=== PATIENT | female | born 1960 | race African-American/Black ===

== ENCOUNTER 2017-02-12 16:44 | Emergency (ER) | payer OTHER ==
[2017-02-12 16:54] VITALS: BP 120/76; PULSE 93; TEMP 99.2; BMI 26.6
--- NOTE | 2017-02-12 17:39 | PDOC ---
History of Present Illness - General Chief Complaint: Cold Symptoms Stated Complaint: COLD SYMPTOMS Time Seen by Provider: 02/12/17 17:22 History Source: Patient Exam Limitations: No Limitations - History of Present Illness Initial Comments: 02/12/17 17:34 CC NASAL CONGESTION AND COUGH X 3 DAYS; FEVER ON FRIDAY Timing/Duration: reports: just prior to arrival Severity: reports: mild Possible Cause: Yes: no prior episodes Modifying Factors: worse with: albuterol inhaler, albuterol nebulizer Past History - Past Medical History Allergies/Adverse Reactions: Allergies Allergy/AdvReac Type Severity Reaction Status Date / Time aspirin Allergy Severe Swelling Verified 02/12/17 16:54 NSAIDS (Non-Steroidal Allergy Severe Swelling Verified 02/12/17 16:54 Anti-Inflamma Home Medications: Ambulatory Orders Carvedilol [Coreg] 12.5 mg PO DAILY 06/08/15 Nifedipine [Procardia] 90 mg PO DAILY 06/08/15 Omeprazole [Prilosec] 20 mg PO DAILY 06/08/15 GI Disorders: Yes (GERD) HTN: Yes Suicide Attempt (Hx): No - Surgical History Abdominal Surgery: Yes - Immunization History Immunization Up to Date: Yes - Psycho/Social/Smoking Cessation Hx Anxiety: No Suicidal Ideation: No Smoking Status: No Smoking History: Never smoked Have you smoked in the past 12 months: No Number of Cigarettes Smoked Daily: 0 Hx Alcohol Use: No Drug/Substance Use Hx: No Substance Use Type: None Review of Systems - Review of Systems Constitutional: Yes: Fever. No: Chills, Malaise HEENTM: Yes: Ear Pain, Ear Discharge. No: Nose Pain, Nose Congestion, Nose Bleeding Respiratory: Yes: Cough. No: Shortness of Breath, SOB with Exertion, Stridor, Wheezing Cardiac (ROS): No: Symptoms Reported ABD/GI: No: Symptoms Reported *Physical Exam - Vital Signs Last Vital Signs Temp Pulse Resp BP Pulse Ox 99.2 F 93 H 20 120/76 99 02/12/17 16:51 02/12/17 16:51 02/12/17 16:51 02/12/17 16:51 02/12/17 16:51 - Physical Exam General Appearance: Yes: Appropriately Dressed. No: Apparent Distress HEENT: negative: Other (POST NASAL DRIP; FLUID IN LEFT MIDDLE EAR) Neck: positive: Rigid. negative: Tender, Lymphadenopathy (R), Lymphadenopathy ( L) Respiratory/Chest: positive: Chest Tender. negative: Lungs Clear, Stridor, Wheezing Medical Decision Making - Medical Decision Making 02/12/17 17:36 LEFT EAR WITH EFFUSION; THROAT= NEGATIVE; NOSE= INJECTED *DC/Admit/Observation/Transfer Diagnosis at time of Disposition: Sinusitis Qualifiers: Sinusitis location: unspecified location Chronicity: acute Recurrence: recurrent Qualified Code(s): J01.91 - Acute recurrent sinusitis, unspecified - Discharge Dispostion Disposition: HOME Condition at time of disposition: Stable Admit: No - Patient Instructions Additional Instructions: LOTS OF FLUIDS; REST; RETURN FOR INCREASED SYMTOMS
== END 2017-02-12 17:44 | disposition home or self-care (01) ==
LOC: JERFT 16:44
DX: J01.90 Acute sinusitis, unspecified (principal)
CPT/HCPCS: 99281-25

== ENCOUNTER 2017-07-06 12:47 | Emergency (ER) | payer OTHER ==
[2017-07-06 13:04] VITALS: BP 153/94; PULSE 82; TEMP 98.1; BMI 26.9
--- NOTE | 2017-07-06 13:45 | PDOC ---
History of Present Illness - General Chief Complaint: Facial Droop Stated Complaint: COLD SYMPTOMS, SLURRED SPEECH Time Seen by Provider: 07/06/17 13:44 - History of Present Illness Initial Comments: 07/06/17 13:47 Ms. Buenrostro is a 57 yo female with pmh of hypertension, GERD, autoimmune hepatitis, dextrocardia insidious, kidney stones, hysterectomy, liver biopsy, and bells palsy who presents c/o a 2 day history of left sided facial droop with right sided facial pain and neck pain. She claims this started some time yesterday afternoon and that she is also not able to taste on the right side of her tongue. The patient denies chest pain, shortness of breath, headache and dizziness. Denies fever, chills, nausea, vomit, diarrhea and constipation. Denies dysuria, frequency, urgency and hematuria. Past History - Past Medical History Allergies/Adverse Reactions: Allergies Allergy/AdvReac Type Severity Reaction Status Date / Time aspirin Allergy Severe Swelling Verified 07/06/17 12:59 NSAIDS (Non-Steroidal Allergy Severe Swelling Verified 07/06/17 12:59 Anti-Inflamma Home Medications: Ambulatory Orders Carvedilol [Coreg] 12.5 mg PO DAILY 06/08/15 Nifedipine [Procardia] 90 mg PO DAILY 06/08/15 Omeprazole [Prilosec] 20 mg PO DAILY 06/08/15 Prednisone [Deltasone] 80 mg PO DAILY #28 tablet 07/06/17 Valacyclovir HCl [Valtrex -] 1,000 mg PO TID #21 tablet 07/06/17 Cardiac Disorders: No CVA: No COPD: No DVT: No GI Disorders: Yes (GERD) HTN: Yes - Surgical History Abdominal Surgery: Yes - Immunization History Immunization Up to Date: Yes - Suicide/Smoking/Psychosocial Hx Smoking Status: No Smoking History: Never smoked Have you smoked in the past 12 months: No Number of Cigarettes Smoked Daily: 0 Information on smoking cessation initiated: No Hx Alcohol Use: No Drug/Substance Use Hx: No Substance Use Type: None Review of Systems - Review of Systems Comments:: 07/06/17 14:15 GENERAL/CONSTITUTIONAL: No fever or chills. No weakness. HEAD, EYES, EARS, NOSE AND THROAT: +Drooping left mouth with difficulty tasting on right side. Right sided facial pain. No change in vision. CARDIOVASCULAR: No chest pain or shortness of breath RESPIRATORY: No cough, wheezing, or hemoptysis. GASTROINTESTINAL: No nausea, vomiting, diarrhea or constipation. GENITOURINARY: No dysuria, frequency, or change in urination. MUSCULOSKELETAL: No joint or muscle swelling or pain. No neck or back pain. SKIN: No rash NEUROLOGIC: No headache, vertigo, loss of consciousness, or change in strength/ sensation. ENDOCRINE: No increased thirst. No abnormal weight change HEMATOLOGIC/LYMPHATIC: No anemia, easy bleeding, or history of blood clots. ALLERGIC/IMMUNOLOGIC: No hives or skin allergy. *Physical Exam - Vital Signs Last Vital Signs Temp Pulse Resp BP Pulse Ox 98.1 F 82 16 153/94 95 07/06/17 13:01 07/06/17 13:01 07/06/17 13:01 07/06/17 13:01 07/06/17 13:01 - Physical Exam Comments: 07/06/17 14:16 GENERAL: Awake, alert, and fully oriented, in no acute distress HEAD: +Tongue deviates to left side. Right sided facial pain to palpation. Left sided facial droop. EYES: PERRLA, EOMI, sclera anicteric, conjunctiva clear ENT: Auricles normal inspection, hearing grossly normal, nares patent, oropharynx clear without exudates. Moist mucosa NECK: Normal ROM, supple, no lymphadenopathy, JVD, or masses LUNGS: No distress, speaks full sentences, clear to auscultation bilaterally HEART: Regular rate and rhythm, normal S1 and S2, no murmurs, rubs or gallops, peripheral pulses normal and equal bilaterally. ABDOMEN: Soft, nontender, normoactive bowel sounds. No guarding, no rebound. No masses EXTREMITIES: Normal inspection, Normal range of motion, no edema. No clubbing or cyanosis. NEUROLOGICAL: Cranial nerves II through XII grossly intact. Normal speech, normal gait, no focal sensorimotor deficits SKIN: Warm, Dry, normal turgor, no rashes or lesions noted. Medical Decision Making - Medical Decision Making 07/06/17 14:19 Patient has a history of torres's palsy and presents with symptoms highly suspicious for recurrence including lack of taste to tongue and facial droop / tongue deviation. Will educate regarding proper sleeping habits and need to keep eye lubricated during day and closed during sleep and discharge w/ Rx for acyclovir and steroids. *DC/Admit/Observation/Transfer Diagnosis at time of Disposition: Torres's palsy - Discharge Dispostion Disposition: HOME - Prescriptions Prescriptions: Prednisone [Deltasone] 80 mg PO DAILY #28 tablet Valacyclovir HCl [Valtrex -] 1,000 mg PO TID #21 tablet - Referrals - Patient Instructions Printed Discharge Instructions: DI for Torres's Palsy Additional Instructions: Please return if any increase or new symptoms. Keep eye closed for sleep and lubricated during day as discussed. - Post Discharge Activity
--- NOTE | 2017-07-06 14:11 | PDOC ---
Attending Attestation - HPI HPI: 07/06/17 14:11 The patient is a 57 year old female with a significant past medical history of hypertension who presents to the ED with complaints of facial drooping and lost of taste since yesterday. The patient reports a sudden onset of right sided facial drooping with lost of taste on the right side of her mouth. The patient has a history of [place] Palsy. Denies being in the sheikh/hiking. Denies fever or chills. Denies nausea, vomiting, or diarrhea. Denies chest pain or shortness of breath. Denies headache. ROS: A complete review of 10 out of 10 review of systems is taken and is negative apart from what is previously mentioned below and in the HPI. - Physicial Exam PE: 07/06/17 14:12 Vitals: Triage Vital signs reviewed General Appearance: no acute distress, well nourished well developed Head: Atruamatic Eyes: Pupils equal reactive round, extraocular movement intact Ears: TM's normal bilaterally Nose: Nares patent bilaterally; no nasal congestion Throat: Posterior oropharynx without erythema, mucous membranes moist Neck: Supple; No Nucal rigidity Chest Wall: Nontender Abdomen: Soft, nondistended, normal bowel sounds, nontender to palpation Extremities: Full range of motion to all extremities, no cyanosis, clubbing, or edema Skin: Warm and dry, no rashes or lesions, no rash, no petechiae Neuro: + + Right sided facial droop that involved the right forehead. AOX3; Strength intact to all extremities, Sensation intact to all extremities Psych: Normal mood, normal affect - Medical Decision Making 07/06/17 14:12 Documentation prepared by Mary Grace Gil, acting as medical manager for Hayes Butts MD <Mary Grace Gil - Last Filed: 07/06/17 18:11> - Resident Resident Name: Jeff Lucero - ED Attending Attestation I have performed the following: I have examined & evaluated the patient, The case was reviewed & discussed with the resident, I agree w/resident's findings & plan, Exceptions are as noted - Medical Decision Making History and examination consistent with Torres's palsy. Right-sided facial weakness involving the forehead. No other neurologic findings. No history of tic or [place] exposure Patient treated with prednisone and valacyclovir Patient provided with neurology follow-up Findings, need for follow-up and strict return instructions discussed with patient. <Hayes Butts - Last Filed: 07/06/17 19:03>
== END 2017-07-06 14:43 | disposition home or self-care (01) ==
LOC: JER 12:47
DX: G51.0 Bell's palsy (principal); I10 Essential (primary) hypertension; K21.9 Gastro-esophageal reflux disease without esophagitis
CPT/HCPCS: 99281-25

== ENCOUNTER 2018-01-12 10:58 | Emergency (ER) | payer OTHER ==
[2018-01-12 11:15] VITALS: TEMP 98.1; BMI 27.1
--- NOTE | 2018-01-12 11:51 | PDOC ---
History of Present Illness - General History Source: Patient Exam Limitations: No Limitations <Meagan Perez - Last Filed: 01/12/18 14:25> <Tawana Castillo - Last Filed: 01/16/18 09:03> - General Chief Complaint: Chest Pain Stated Complaint: CHEST PAIN Time Seen by Provider: 01/12/18 11:38 - History of Present Illness Initial Comments: CHIEF COMPLAINT: 57 y/o afebrile female with PMH HTN c/o right sided chest pain since yesterday. HISTORY OF PRESENT ILLNESS: The patient states the pain is intermittent and pinching. She took tylenol yesterday with little relief. She denies fever, chills, n/v/d, SOB, cough, hemoptysis, jaw pain, left arm pain, abd pain, back pain, hematuria, dysuria. She does admit 2 days ago she was lifting cases of water by herself. Vital signs on arrival are within normal limits. REVIEW OF SYSTEMS: GENERAL/CONSTITUTIONAL: Subjective fever/chills. No weakness. No weight change. HEAD, EYES, EARS, NOSE AND THROAT: No change in vision. No ear pain or discharge. No sore throat. CARDIOVASCULAR: +right sided chest pain. No shortness of breath. RESPIRATORY: No cough, wheezing, or hemoptysis. GASTROINTESTINAL: No abd pain, nausea, vomiting, diarrhea. GENITOURINARY: No dysuria, frequency, or change in urination. MUSCULOSKELETAL: No joint or muscle swelling or pain. No neck or back pain. SKIN: No rash or easy bruising. NEUROLOGIC: No headache, vertigo, loss of consciousness, or loss of sensation. PHYSICAL EXAM: GENERAL: The patient is awake, alert, and fully oriented, in no acute distress. She is well appearing, ambulatory, in NAD or obvious discomfort. HEAD: Normal with no signs of trauma. ENT: Pupils equal, round and reactive to light, extraocular movements intact, sclera anicteric, conjunctiva clear. Neck supple. LUNGS: Clear to auscultation bilaterally. Normal excursion. No respiratory distress or use of accessory muscles. CV: RRR, S1/S2, no MRG. Cap refill < 2 sec. CHEST WALL: Reproducible pain with palpation of right anterior chest wall. BREAST: No masses appreciated. ABDOMEN: Soft, non-distended, non-tender even to deep palpation, no hepatomegaly or splenomegaly, no masses. EXTREMITIES: Normal range of motion, no edema. NEUROLOGICAL: Normal speech, normal gait. CN II-XII grossly intact. SKIN: Warm, dry, normal turgor, no rashes or lesions noted. (Meagan Perez) Past History - Past Medical History Cardiac Disorders: No CVA: No COPD: No DVT: No GI Disorders: Yes (GERD) HTN: Yes Other medical history: ATTOIMMUNE HEPATITIS, "ALL MY ORGANS ARE ON THE OPPOSITE SIDE" - Surgical History Abdominal Surgery: Yes - Immunization History Immunization Up to Date: Yes - Suicide/Smoking/Psychosocial Hx Smoking Status: No Smoking History: Never smoked Have you smoked in the past 12 months: No Number of Cigarettes Smoked Daily: 0 Hx Alcohol Use: No Drug/Substance Use Hx: No Substance Use Type: None <Meagan Perez - Last Filed: 01/12/18 14:25> <Tawana Castillo - Last Filed: 01/16/18 09:03> - Past Medical History Allergies/Adverse Reactions: Allergies Allergy/AdvReac Type Severity Reaction Status Date / Time aspirin Allergy Severe Swelling Verified 01/12/18 11:11 NSAIDS (Non-Steroidal Allergy Severe Swelling Verified 01/12/18 11:11 Anti-Inflamma shrimp Allergy Intermediate Hives Verified 01/12/18 11:11 Home Medications: Ambulatory Orders Carvedilol [Coreg] 12.5 mg PO BID 06/08/15 Nifedipine [Procardia] 90 mg PO DAILY 06/08/15 Omeprazole [Prilosec] 20 mg PO DAILY 06/08/15 Acetaminophen [Tylenol Extra Strength] 500 mg PO TID PRN 01/12/18 - Vital Signs Last Vital Signs Temp Pulse Resp BP Pulse Ox 98.1 F 78 18 107/77 98 01/12/18 11:11 01/12/18 15:10 01/12/18 15:10 01/12/18 15:10 01/12/18 15:10 Heart Score/ECG Review <Meagan Perez - Last Filed: 01/12/18 14:25> <Tawana Castillo - Last Filed: 01/16/18 09:03> - ECG Intrepretation Comment:: Twelve-lead EKG was performed and reviewed by Dr. Muhammad. There is normal sinus rhythm with a normal rate. The axis is normal. The intervals are normal. There are flipped T-waves V1-V3. Impression: Normal twelve-lead EKG (Meagan Perez) ED Treatment Course - LABORATORY CBC & Chemistry Diagram: 01/12/18 12:48 01/12/18 12:48 <Meagan Perez - Last Filed: 01/12/18 14:25> - LABORATORY CBC & Chemistry Diagram: 01/12/18 12:48 01/12/18 12:48 <Tawana Castillo - Last Filed: 01/16/18 09:03> - ADDITIONAL ORDERS Additional order review: 01/12/18 12:48 RBC 4.96 MCV 77.2 L MCHC 33.2 RDW 14.6 D MPV 8.3 Neutrophils % 56.4 Lymphocytes % 32.7 Monocytes % 7.3 Eosinophils % 2.1 Basophils % 1.5 - Medications Given in the ED: ED Medications Discontinued Medications Generic Name Dose Route Start Last Admin Trade Name Leidy PRN Reason Stop Dose Admin Acetaminophen 1,000 mg 01/12/18 12:30 01/12/18 13:11 Ofirmev Injection - IVPB 01/12/18 12:31 Not Given ONCE ONE Medical Decision Making <Meagan Perez - Last Filed: 01/12/18 14:25> <Tawana Castillo - Last Filed: 01/16/18 09:03> - Medical Decision Making A/P: 57 y/o female with right anterior, reproducible chest wall pain. Given her age and h/o HTN will proceed as follows: 1. labs 2. EKG 3. Iv tylenol Labs and EKG unremarkable. Patient states she feels much better after IV tylenol Will discharge to home with instructions for musculoskeletal pain. Suggested tylenol for pain at home and f/u with both Dr. Newman and Dr. Arias. Patient instructed to return to the ER with any worsening or concerning symptoms. The patient verbalizes understanding of all instructions, has no further questions and is awaiting discharge. (Meagan Perez) *DC/Admit/Observation/Transfer <Meagan Perez - Last Filed: 01/12/18 14:25> <Tawana Castillo - Last Filed: 01/16/18 09:03> Diagnosis at time of Disposition: Musculoskeletal chest pain - Discharge Dispostion Disposition: HOME Condition at time of disposition: Improved - Referrals Referrals: Mono Newman MD [Staff Physician] - 1 week Janes Arias MD [Staff Physician] - 14 days - Patient Instructions Printed Discharge Instructions: DI for Atypical Chest Pain, DI for Musculoskeletal Pain Additional Instructions: Discharge Instructions: -Your EKG and labs were normal -Your symptoms are most likely musculoskeletal in nature -Please take 650mg of Tylenol every 4-6 hours if needed for pain -Follow up with Dr. Newman (primary care) within [address] Arias (cardiology ) if symptoms persist -Return to the ER with any worsening or concerning symptoms. - Post Discharge Activity Forms/Work/School Notes: Back to Work - Attestations Physician Attestion: I reviewed the case with the mid-level practitioner and agree with the mid- level practitioner's assessment, diagnosis and disposition. (Tawana Castillo)
[2018-01-12] MEDS ORDERED: ACETAMINOPHEN 1000 MG/100 ML VIAL (NON FORMULARY) IVPB ONE (12:30)
[2018-01-12] MEDS ORDERED: ACETAMINOPHEN INJECTION 100 ML IVPB ONE (12:52)
[2018-01-12 13:04] LABS: BASO % 1.5 % (0-2.0); EOS % 2.1 % (0-4.5); HEMATOCRIT 38.3 % (32.4-45.2); HEMOGLOBIN 12.7 GM/dL (10.7-15.3); LYMPH % 32.7 % (8-40); MCH 25.6 pg (25.7-33.7); MCHC 33.2 g/dl (32.0-36.0); MEAN CELL VOLUME 77.2 fl (80-96); MEAN PLT VOLUME 8.3 fl (7.5-11.1); MONO % 7.3 % (3.8-10.2); NEUT % 56.4 % (42.8-82.8); PLATELET COUNT 332 K/MM3 (134-434); RBC 4.96 M/mm3 (3.60-5.2); RDW 14.6 % (11.6-15.6); WHITE BLOOD COUNT 5.5 K/mm3 (4.0-10.0)
[2018-01-12 13:34] LABS: ALBUMIN 3.9 g/dl (3.4-5.0); ANION GAP 8 (8-16); BILIRUBIN,TOTAL 0.3 mg/dL (0.2-1.0); BLOOD UREA NITROGEN 10 mg/dL (7-18); CALCIUM 8.7 mg/dL (8.5-10.1); CHLORIDE 105 mmol/L (98-107); CO2 29 mmol/L (21-32); CREATININE 0.6 mg/dL (0.55-1.02); GLUCOSE,RANDOM 104 mg/dL (74-106); POTASSIUM 3.1 mmol/L (3.5-5.1); SGOT/AST 17 U/L (15-37); SGPT/ALT 20 U/L (12-78); SODIUM 142 mmol/L (136-145); TOT PROT 7.9 g/dl (6.4-8.2)
[2018-01-12 13:35] LABS: ALK PHOS 177 U/L (45-117)
[2018-01-12 15:11] VITALS: BP 107/77; PULSE 78
--- NOTE | 2018-01-13 13:25 | EKG ---
Test Reason : Blood Pressure : / mmHG Vent. Rate : 087 BPM Atrial Rate : 087 BPM P-R Int : 174 ms QRS Dur : 078 ms QT Int : 390 ms P-R-T Axes : 000 184 130 degrees QTc Int : 469 ms NORMAL SINUS RHYTHM ANTEROLATERAL INFARCT (CITED ON OR BEFORE 21-JAN-2014) ABNORMAL ECG WHEN COMPARED WITH ECG OF 08-JUN-2015 13:29, SINUS RHYTHM HAS REPLACED ECTOPIC ATRIAL RHYTHM T WAVE INVERSION MORE EVIDENT IN ANTERIOR LEADS Confirmed by MD JOHNNY, ARUN ([id number]) on 01/13/2018 1:25:25 PM Referred By: Confirmed By:ARUN TURNER MD
--- NOTE | 2018-01-14 11:44 | EKG ---
Test Reason : Blood Pressure : / mmHG Vent. Rate : 079 BPM Atrial Rate : 079 BPM P-R Int : 192 ms QRS Dur : 076 ms QT Int : 392 ms P-R-T Axes : 000 192 129 degrees QTc Int : 449 ms NORMAL SINUS RHYTHM RIGHT SUPERIOR AXIS DEVIATION SEPTAL INFARCT (CITED ON OR BEFORE 21-JAN-2014) T WAVE ABNORMALITY, CONSIDER ANTERIOR ISCHEMIA ABNORMAL ECG WHEN COMPARED WITH ECG OF 12-JAN-2018 12:24, QUESTIONABLE CHANGE IN INITIAL FORCES OF LATERAL LEADS T WAVE INVERSION LESS EVIDENT IN LATERAL LEADS Confirmed by KRUPA CARROLL, CAROLYN ([id number]) on 01/14/2018 11:44:23 AM Referred By: Confirmed By:CAROLYN GENTILE MD
== END 2018-01-12 15:10 | disposition home or self-care (01) ==
LOC: JER 10:58
PROC: 3E033NZ Introduction of Analgesics, Hypnotics, Sedatives into Peripheral Vein, Percutaneous Approach (ICD-10-PCS; principal; 2018-01-12)
DX: R07.89 Other chest pain (principal); I10 Essential (primary) hypertension; K75.4 Autoimmune hepatitis
CPT/HCPCS: 36415; 80053; 82550; 84484; 85025; 93005; 93010; 96374; 99283-25

== ENCOUNTER 2018-07-06 18:38 | Emergency (ER) | payer OTHER ==
--- NOTE | 2018-07-06 19:13 | PDOC ---
Rapid Medical Evaluation Time Seen by Provider: 07/06/18 19:11 Medical Evaluation: Allergies Allergy/AdvReac Type Severity Reaction Status Date / Time aspirin Allergy Severe Swelling Verified 01/12/18 11:11 NSAIDS (Non-Steroidal Allergy Severe Swelling Verified 01/12/18 11:11 Anti-Inflamma shrimp Allergy Intermediate Hives Verified 01/12/18 11:11 07/06/18 19:12 Pt c/o: upper abd pain x 1 day, no f/n/v/d, no GI hx Pt on brief exam: vss, no abd tenderness pt ordered for: cbc, comp, lipase pt to proceed to the ED Discharge Disposition - Diagnosis Abdominal pain - Referrals - Patient Instructions - Post Discharge Activity
[2018-07-06 19:14] VITALS: BP 123/79; PULSE 94; TEMP 98.3; BMI 26.9
== END 2018-07-06 21:43 | disposition left against medical advice (07) ==
LOC: JER 18:38
DX: R10.10 Upper abdominal pain, unspecified (principal)
CPT/HCPCS: 99281-25

== ENCOUNTER 2018-07-09 15:49 | Emergency (ER) | payer OTHER ==
[2018-07-09 16:01] VITALS: BMI 26.9
--- NOTE | 2018-07-09 16:07 | PDOC ---
History of Present Illness - General Chief Complaint: Pain Stated Complaint: Pain Time Seen by Provider: 07/09/18 16:07 - History of Present Illness Initial Comments: 58 year old female with PMH of hypertension, GERD, autoimmune hepatitis (found on liver biopsy), dextrocardia insidious, kidney stones, hysterectomy, and bells palsy presenting with acute on chronic left mid and epigastric pain for the past few years. Patient states that she has a sharp epigastric pain and this mid left abdominal pain a few times per month and it comes in waves then dissapates on its own without any obvious exacerbating or relieving factors. She has not been worked up for this before 07/09/18 16:47 Past History - Past Medical History Allergies/Adverse Reactions: Allergies Allergy/AdvReac Type Severity Reaction Status Date / Time aspirin Allergy Severe Swelling Verified 07/09/18 16:01 NSAIDS (Non-Steroidal Allergy Severe Swelling Verified 07/09/18 16:01 Anti-Inflamma shrimp Allergy Intermediate Hives Verified 07/09/18 16:01 Home Medications: Ambulatory Orders Carvedilol [Coreg] 12.5 mg PO BID 06/08/15 Omeprazole [Prilosec] 20 mg PO DAILY 06/08/15 Acetaminophen [Tylenol Extra Strength] 500 mg PO TID PRN 01/12/18 Nifedipine ER [Procardia Xl -] 90 mg PO DAILY 07/09/18 Cardiac Disorders: No CVA: No COPD: No DVT: No GI Disorders: Yes (GERD) HTN: Yes - Surgical History Abdominal Surgery: Yes - Immunization History Immunization Up to Date: Yes - Suicide/Smoking/Psychosocial Hx Smoking Status: No Smoking History: Never smoked Have you smoked in the past 12 months: No Number of Cigarettes Smoked Daily: 0 Hx Alcohol Use: No Drug/Substance Use Hx: No Substance Use Type: None Review of Systems - Review of Systems Constitutional: No: Chills, Diaphoresis, Fever, Loss of Appetite HEENTM: No: Eye Pain, Blurred Vision, Tearing Respiratory: No: Cough, Orthopnea, Shortness of Breath Cardiac (ROS): Yes: Chest Pain. No: Edema, Irregular Heart Rate, Chest Tightness, Other ABD/GI: No: Diarrhea, Nausea, Vomiting : No: Dysuria, Discharge, Frequency Musculoskeletal: No: Gout, Joint Pain, Joint Swelling Neurological: No: Numbness, Paresthesia, Tremors Psychiatric: No: Stressors, Sleep Pattern Change Hematologic/Lymphatic: No: Anemia, Blood Clots, Easy Bleeding *Physical Exam - Vital Signs Last Vital Signs Temp Pulse Resp BP Pulse Ox 98.9 F 93 H 18 130/79 100 07/09/18 15:59 07/09/18 15:59 07/09/18 15:59 07/09/18 15:59 07/09/18 15:59 - Physical Exam General Appearance: Yes: Nourished, Appropriately Dressed. No: Apparent Distress HEENT: positive: EOMI, JOÃO, Normal ENT Inspection, Normal Voice Neck: positive: Trachea midline, Normal Thyroid, Supple. negative: Tender, Rigid Respiratory/Chest: positive: Lungs Clear, Normal Breath Sounds. negative: Chest Tender, Respiratory Distress, Accessory Muscle Use Cardiovascular: positive: Regular Rhythm, Regular Rate Gastrointestinal/Abdominal: positive: Normal Bowel Sounds, Flat, Soft. negative : Tender Lymphatic: negative: Adenopathy, Tenderness Musculoskeletal: positive: Normal Inspection. negative: CVA Tenderness Extremity: positive: Normal Capillary Refill, Normal Inspection, Normal Range of Motion. negative: Tender Integumentary: positive: Normal Color, Dry, Warm Neurologic: positive: Fully Oriented, Alert, Normal Mood/Affect, Normal Response , Motor Strength 5/5 Moderate Sedation - Procedure Monitoring Vital Signs: Procedure Monitoring Vital Signs Temperature 98.9 F 07/09/18 15:59 Pulse Rate 93 H 07/09/18 15:59 Respiratory Rate 18 07/09/18 15:59 Blood Pressure 130/79 07/09/18 15:59 O2 Sat by Pulse Oximetry (%) 100 07/09/18 15:59 ED Treatment Course - LABORATORY CBC & Chemistry Diagram: 07/09/18 17:14 07/09/18 17:14 Medical Decision Making - Medical Decision Making 58 year old female presenting with left lower abdominal pain but non-tender on exam. Patient pending labs and EKG. Signed out to Dr. Demarco in stable condition. 07/09/18 19:10 *DC/Admit/Observation/Transfer Diagnosis at time of Disposition: Abdominal pain Qualifiers: Abdominal location: left upper quadrant Qualified Code(s): R10.12 - Left upper quadrant pain - Discharge Dispostion Disposition: HOME Condition at time of disposition: Stable Decision to Admit order: No - Referrals - Patient Instructions - Post Discharge Activity
[2018-07-09 17:31] LABS: BASO % 1.1 % (0-2.0); EOS % 3.4 % (0-4.5); HEMATOCRIT 36.5 % (32.4-45.2); HEMOGLOBIN 12.6 GM/dL (10.7-15.3); MCHC 34.5 g/dl (32.0-36.0); MEAN CELL VOLUME 78.1 fl (80-96); MEAN PLT VOLUME 8.1 fl (7.5-11.1); MONO % 5.5 % (3.8-10.2); PLATELET COUNT 349 K/MM3 (134-434); RBC 4.67 M/mm3 (3.60-5.2); RDW 14.9 % (11.6-15.6); WHITE BLOOD COUNT 7.1 K/mm3 (4.0-10.0)
--- NOTE | 2018-07-09 17:31 | PDOC ---
Attending Attestation - HPI HPI: 07/09/18 17:42 The patient is a 58 year old female with a significant PMHx of hypertension, GERD, autoimmune hepatitis (found on liver biopsy), dextrocardia insidious, kidney stones, hysterectomy, and srinivasan's palsy presenting with a few days of left sided chest pain which she describes as intermittent, sharp and lingering. She denies radiation of pain. She states the pain resolved upon ED arrival. - Physicial Exam PE: 07/09/18 17:43 GENERAL: Awake, alert, and fully oriented, in no acute distress HEAD: No signs of trauma EYES: PERRLA, EOMI, sclera anicteric, conjunctiva clear ENT: Auricles normal inspection, hearing grossly normal, nares patent, oropharynx clear without exudates. Moist mucosa NECK: Normal ROM, supple, no lymphadenopathy, JVD, or masses LUNGS: Breath sounds equal, clear to auscultation bilaterally. No wheezes, and no crackles HEART: Regular rate and rhythm, normal S1 and S2, no murmurs, rubs or gallops ABDOMEN: Soft, nontender, normoactive bowel sounds. No guarding, no rebound. No masses EXTREMITIES: Normal range of motion, no edema. No clubbing or cyanosis. No cords, erythema, or tenderness NEUROLOGICAL: Cranial nerves II through XII grossly intact. Normal speech, normal gait SKIN: Warm, Dry, normal turgor, no rashes or lesions noted. - Medical Decision Making 07/09/18 17:43 Documentation prepared by Mony Garcia, acting as medical csr for Adriana Arroyo MD <Mony Garcia - Last Filed: 07/09/18 17:42> - Medical Decision Making 07/09/18 18:27 Pt presents to the ED complaining of two days of atypical chest and epigastric pain. Deines fever, nausea and vomiting or shortness of breath. No abdominal tenderness. Differential includes muscular pain, GERD, less likely ACS. Will check labs and EKG, likely discharge home if negative. <Adriana Arroyo - Last Filed: 07/09/18 18:38>
[2018-07-09 17:37] LABS: URINE APPEARANCE CLEAR; URINE BILIRUBIN NEGATIVE (<2.0 mg/dL); URINE COLOR YELLOW; URINE GLUCOSE (UA) NEGATIVE (NEGATIVE); URINE KETONE NEGATIVE (NEGATIVE); URINE LEUK ESTERASE NEGATIVE (NEGATIVE); URINE NITRITE NEGATIVE (NEGATIVE); URINE PROTEIN NEGATIVE (NEGATIVE)
[2018-07-09 19:29] LABS: AMYLASE 69 U/L (25-115); LIPASE 151 U/L (73-393)
[2018-07-09 19:35] LABS: ALBUMIN 3.7 g/dl (3.4-5.0); ALK PHOS 176 U/L (45-117); ANION GAP 10 MMOL/L (8-16); BILIRUBIN,TOTAL 0.2 mg/dL (0.2-1); BLOOD UREA NITROGEN 13 mg/dL (7-18); CALCIUM 8.3 mg/dL (8.5-10.1); CHLORIDE 105 mmol/L (98-107); CO2 27 mmol/L (21-32); CREATININE 0.6 mg/dL (0.55-1.3); GLUCOSE,RANDOM 100 mg/dL (74-106); POTASSIUM 3.2 mmol/L (3.5-5.1); SGOT/AST 13 U/L (15-37); SGPT/ALT 21 U/L (13-61); SODIUM 141 mmol/L (136-145); TOT PROT 7.6 g/dl (6.4-8.2)
--- NOTE | 2018-07-09 19:58 | PDOC ---
*Physical Exam - Vital Signs Last Vital Signs Temp Pulse Resp BP Pulse Ox 98.9 F 93 H 18 130/79 98 07/09/18 15:59 07/09/18 15:59 07/09/18 15:59 07/09/18 15:59 07/09/18 16:46 - Physical Exam Comments: 07/09/18 19:59 GENERAL: Awake, alert, and fully oriented, in no acute distress HEAD: No signs of trauma, normocephalic, atraumatic EYES: PERRLA, EOMI, sclera anicteric, conjunctiva clear ENT: Hearing grossly normal, nares patent, oropharynx clear without exudates. Moist mucosa NECK: Normal ROM, supple, no lymphadenopathy, JVD, or masses LUNGS: No distress, speaks full sentences, clear to auscultation bilaterally HEART: Regular rate and rhythm, normal S1 and S2, no murmurs, rubs or gallops, peripheral pulses normal and equal bilaterally. ABDOMEN: Soft, nontender, normoactive bowel sounds. No guarding, no rebound. No masses EXTREMITIES : Normal inspection, Normal range of motion, no edema. No clubbing or cyanosis. SKIN: Warm, Dry, normal turgor, no rashes or lesions noted ED Treatment Course - LABORATORY CBC & Chemistry Diagram: 07/09/18 17:14 07/09/18 18:31 - ADDITIONAL ORDERS Additional order review: Laboratory Results 07/09/18 07/09/18 07/09/18 18:31 18:31 17:28 Sodium 141 Potassium 3.2 L Chloride 105 Carbon Dioxide 27 Anion Gap 10 BUN 13 Creatinine 0.6 Creat Clearance w eGFR > 60 Random Glucose 100 Calcium 8.3 L Total Bilirubin 0.2 AST 13 L ALT 21 Alkaline Phosphatase 176 H Creatine Kinase Troponin I < 0.02 Total Protein 7.6 Albumin 3.7 Total Amylase 69 Lipase 151 Urine Color Yellow Urine Appearance Clear Urine pH 6.0 D Ur Specific Queen 1.018 Urine Protein Negative Urine Glucose (UA) Negative Urine Ketones Negative Urine Blood Negative Urine Nitrite Negative Urine Bilirubin Negative Urine Urobilinogen 2.0 H Ur Leukocyte Esterase Negative 07/09/18 17:14 Sodium Cancelled Potassium Cancelled Chloride Cancelled Carbon Dioxide Cancelled Anion Gap Cancelled BUN Cancelled Creatinine Cancelled Creat Clearance w eGFR Cancelled Random Glucose Cancelled Calcium Cancelled Total Bilirubin Cancelled AST Cancelled ALT Cancelled Alkaline Phosphatase Cancelled Creatine Kinase Cancelled Troponin I Cancelled Total Protein Cancelled Albumin Cancelled Total Amylase Cancelled Lipase Cancelled Urine Color Urine Appearance Urine pH Ur Specific Queen Urine Protein Urine Glucose (UA) Urine Ketones Urine Blood Urine Nitrite Urine Bilirubin Urine Urobilinogen Ur Leukocyte Esterase 07/09/18 17:14 RBC 4.67 MCV 78.1 L MCHC 34.5 RDW 14.9 MPV 8.1 Neutrophils % 61.0 Lymphocytes % 29.0 Monocytes % 5.5 Eosinophils % 3.4 Basophils % 1.1 Medical Decision Making - Medical Decision Making 07/09/18 19:50 58 yo F with h/o HTN, GERD, Autoimmune hepatitis, dextrocardia, hysterectomy, who p/w acute on chronic epigastria pain x 3 years. Patient endorsed by Dr. Metcalf. VSS, AF, physical exam unremarkable. ED Course notable for lab eval, EKG. Patient ACS/NH r/o. Pain likely 2/2 to gastritis vs. esophagitis. Will consider pancreatitis, biliary dz., enteritis. ED Course: 07/09/18 19:59 CBC,CMP: Unremarkable Trop: Neg Lipase: Neg Pt. pain improved. Stable for d/c with return precautions. Advised to f/u GI. *DC/Admit/Observation/Transfer Diagnosis at time of Disposition: Abdominal pain Qualifiers: Abdominal location: left upper quadrant Qualified Code(s): R10.12 - Left upper quadrant pain - Discharge Dispostion Disposition: HOME Condition at time of disposition: Stable - Referrals Referrals: Rufus Espinal MD [Staff Physician] - - Patient Instructions Printed Discharge Instructions: DI for Epigastric Pain Additional Instructions: Please return to the emergency department with any new or worsening symptoms or concerns. Please follow up with your primary care physician within 72 hours. Please follow up with gastroenterology within one week. - Post Discharge Activity - Attestations Physician Attestion: 07/09/18 19:59 I attest to the information provided in this note.
[2018-07-09 21:19] VITALS: BP 127/81; PULSE 83; TEMP 98.1
--- NOTE | 2018-07-10 10:17 | EKG ---
Test Reason : Blood Pressure : / mmHG Vent. Rate : 074 BPM Atrial Rate : 074 BPM P-R Int : 186 ms QRS Dur : 082 ms QT Int : 392 ms P-R-T Axes : 000 194 140 degrees QTc Int : 435 ms NORMAL SINUS RHYTHM ANTEROLATERAL INFARCT (CITED ON OR BEFORE 21-JAN-2014) ABNORMAL ECG Confirmed by MARY ANN WRIGHT MD ([id number]) on 07/10/2018 10:16:57 AM Referred By: Confirmed By:MARY ANN WRIGHT MD
== END 2018-07-09 21:40 | disposition home or self-care (01) ==
LOC: JER 15:49
DX: R10.12 Left upper quadrant pain (principal); I10 Essential (primary) hypertension; K21.9 Gastro-esophageal reflux disease without esophagitis
CPT/HCPCS: 36415; 80053; 81003; 82150; 82550; 83690; 84484; 85025; 93005; 93010; 99285-25

== ENCOUNTER 2018-12-20 20:25 | Emergency (ER) | payer OTHER ==
[2018-12-20 20:33] VITALS: TEMP 98; BMI 29.2
[2018-12-20] MEDS ORDERED: SODIUM CHLORIDE 1,000 ML IV STA (20:47)
--- NOTE | 2018-12-20 20:57 | PDOC ---
History of Present Illness - General Chief Complaint: Palpitations Stated Complaint: HEART PALPITATION Time Seen by Provider: 12/20/18 20:33 History Source: Patient Exam Limitations: No Limitations - History of Present Illness Initial Comments: 12/20/18 20:51 Patient is a 58F with history significant for dextrocardia, situs inversus and HTN here today complaining of palpitations that started 45 minutes prior to arrival. Denies associated chest pain and shortness of breath. Patient states that she's had two prior caths in the past, both normal. Patient denies leg swelling, recent travel, history of blood clots in self and family. Denies cough , fever, nausea, vomiting, diarrhea. States that she had this happen once before two years ago, but states that nothing happened then. Past History - Past Medical History Allergies/Adverse Reactions: Allergies Allergy/AdvReac Type Severity Reaction Status Date / Time aspirin Allergy Severe Swelling Verified 07/09/18 16:01 NSAIDS (Non-Steroidal Allergy Severe Swelling Verified 07/09/18 16:01 Anti-Inflamma shrimp Allergy Intermediate Hives Verified 07/09/18 16:01 Home Medications: Ambulatory Orders Carvedilol [Coreg] 12.5 mg PO BID 06/08/15 Omeprazole [Prilosec] 20 mg PO DAILY 06/08/15 Nifedipine ER [Procardia Xl -] 90 mg PO DAILY 07/09/18 Cardiac Disorders: No CVA: No COPD: No DVT: No GI Disorders: Yes (GERD) HTN: Yes - Surgical History Abdominal Surgery: Yes - Immunization History Immunization Up to Date: Yes - Suicide/Smoking/Psychosocial Hx Smoking Status: No Smoking History: Never smoked Have you smoked in the past 12 months: No Number of Cigarettes Smoked Daily: 0 Hx Alcohol Use: No Drug/Substance Use Hx: No Substance Use Type: None Review of Systems - Review of Systems Able to Perform ROS?: Yes Comments:: 12/20/18 20:56 GENERAL/CONSTITUTIONAL: No fever or chills. No weakness. HEAD, EYES, EARS, NOSE AND THROAT: No change in vision. No sore throat. CARDIOVASCULAR: No chest pain or shortness of breath +palpitations RESPIRATORY: No cough, wheezing, or hemoptysis. GASTROINTESTINAL: No nausea, vomiting, diarrhea or constipation. GENITOURINARY: No dysuria, frequency, or change in urination. MUSCULOSKELETAL: No joint or muscle swelling or pain. No neck or back pain. SKIN: No rash NEUROLOGIC: No headache, vertigo, loss of consciousness, or change in strength/ sensation. HEMATOLOGIC/LYMPHATIC: No anemia, easy bleeding, or history of blood clots. ALLERGIC/IMMUNOLOGIC: No hives or skin allergy. *Physical Exam - Vital Signs Last Vital Signs Temp Pulse Resp BP Pulse Ox 98 F 110 H 20 131/92 97 12/20/18 20:28 12/20/18 20:49 12/20/18 20:49 12/20/18 20:49 12/20/18 20:49 - Physical Exam Comments: 12/20/18 20:57 GENERAL: Awake, alert, and fully oriented, in no acute distress HEAD: No signs of trauma, normocephalic, atraumatic EYES: PERRLA, EOMI, sclera anicteric, conjunctiva clear ENT: Auricles normal inspection, hearing grossly normal, nares patent, oropharynx clear without exudates. Dry mucosa NECK: Normal ROM, supple, no lymphadenopathy, JVD, or masses LUNGS: No distress, speaks full sentences, clear to auscultation bilaterally HEART: Regular rate and rhythm, normal S1 and S2, no murmurs, rubs or gallops, peripheral pulses normal and equal bilaterally. ABDOMEN: Soft, nontender, normoactive bowel sounds. No guarding, no rebound. No masses EXTREMITIES: Normal inspection, Normal range of motion, no edema. No clubbing or cyanosis. NEUROLOGICAL: Cranial nerves II through XII grossly intact. Normal speech, no focal sensorimotor deficits SKIN: Warm, Dry, normal turgor, no rashes or lesions noted. ED Treatment Course - LABORATORY CBC & Chemistry Diagram: 12/20/18 21:10 12/20/18 21:10 - RADIOLOGY Radiology Studies Ordered: Category Date Time Status CHEST X-RAY PORTABLE* [RAD] Stat Radiology 12/20/18 20:49 Ordered Medical Decision Making - Medical Decision Making 12/20/18 20:58 Patient is 58F with history of dextrocardia, htn, situs inversus here today with palptiations. Vitals notable for tachycardia. DDx includes, but is not limited to: PE (Well's 1.5, low risk), dehydration, arrhythmia. Will treat with fluids. Will work up with ekg, cbc, cmp, pt/inr, trop, cxr, d-dimer. EKG shows sinus tachycardia with evidence of dextrocardia (upright avr with down avl), rate 114. Normal axis, normal intervals. No st elevations/ depressions. No significant t wave abnormalities. 12/20/18 21:01 CXR shows no acute cardiopulmonary process, dextrocardia. 12/20/18 21:52 CBC normal. CMP normal. D-dimer rules out PE. TSH added, pending. Patient HR is 102 after 200cc of fluid, will reassess and likely discharge home. 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 Please return if you have any new, worsening or concerning symptoms, especially increasing pain, fever, and palpitations. Please drink plenty of fluids, as I believe that you were dehydrated today. - Post Discharge Activity
[2018-12-20 21:24] LABS: BASO % 0.8 % (0-2.0); EOS % 3.1 % (0-4.5); HEMATOCRIT 38.6 % (32.4-45.2); HEMOGLOBIN 12.7 GM/dL (10.7-15.3); LYMPH % 36.2 % (8-40); MCH 25.8 pg (25.7-33.7); MCHC 32.8 g/dl (32.0-36.0); MEAN CELL VOLUME 78.6 fl (80-96); MEAN PLT VOLUME 8.1 fl (7.5-11.1); MONO % 6.7 % (3.8-10.2); NEUT % 53.2 % (42.8-82.8); PLATELET COUNT 355 K/MM3 (134-434); RBC 4.91 M/mm3 (3.60-5.2); RDW 14.7 % (11.6-15.6); WHITE BLOOD COUNT 7.4 K/mm3 (4.0-10.0)
[2018-12-20 21:34] LABS: INR 0.97 (0.83-1.09); PROTHROMBIN TIME (PATIENT) 11.4 SEC (9.7-13.0)
[2018-12-20 21:46] LABS: ALBUMIN 3.9 g/dl (3.4-5.0); ALK PHOS 196 U/L (45-117); ANION GAP 8 MMOL/L (8-16); BILIRUBIN,TOTAL 0.2 mg/dL (0.2-1); BLOOD UREA NITROGEN 14 mg/dL (7-18); CALCIUM 8.5 mg/dL (8.5-10.1); CHLORIDE 105 mmol/L (98-107); CO2 28 mmol/L (21-32); CREATININE 0.7 mg/dL (0.55-1.3); GLUCOSE,RANDOM 144 mg/dL (74-106); MAGNESIUM 1.9 mg/dL (1.8-2.4); SGOT/AST 15 U/L (15-37); SGPT/ALT 21 U/L (13-61); SODIUM 141 mmol/L (136-145); TOT PROT 8.2 g/dl (6.4-8.2)
--- NOTE | 2018-12-20 23:24 | PDOC ---
Documentation entered by Mala Newby SCRIBE, acting as scribe for Tabitha Aviles MD. Tabitha Aviles MD: This documentation has been prepared by the rojelioibe, Mala Newby SCRIBE, under my direction and personally reviewed by me in its entirety. I confirm that the documentation accurately reflects all work, treatment, procedures, and medical decision making performed by me. Attending Attestation - Resident Resident Name: Stefan Lomeli - ED Attending Attestation I have performed the following: I have examined & evaluated the patient, The case was reviewed & discussed with the resident, I agree w/resident's findings & plan, Exceptions are as noted - HPI HPI: 12/20/18 21:00 The patient is a 58 year old female with a significant past medical history of Rule Palsy, dextrocardia, hysterectomy, hypertension, GERD, kidney stones and autoimmune hepatitis who presents to the emergency department with a sudden onset of heart palpitations 45 min prior to arrival. The patient states that she experienced a similar episode about 2 years ago . she state that she is complaint with all of her regular medications. She denies any chest pain, shortness of breath, recent travel, leg swelling or pain. She denies any fever, chills, nausea, vomiting, diarrhea constipation or urinary symptoms. The patient denies any other complaints. 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
[2018-12-20 23:29] VITALS: BP 125/90; PULSE 93
--- NOTE | 2018-12-21 09:53 | EKG ---
Test Reason : Blood Pressure : / mmHG Vent. Rate : 114 BPM Atrial Rate : 114 BPM P-R Int : 182 ms QRS Dur : 080 ms QT Int : 314 ms P-R-T Axes : 115 175 130 degrees QTc Int : 432 ms SUSPECT ARM LEAD REVERSAL, INTERPRETATION ASSUMES NO REVERSAL SINUS TACHYCARDIA POSSIBLE ANTEROLATERAL INFARCT (CITED ON OR BEFORE 21-JAN-2014) ABNORMAL ECG WHEN COMPARED WITH ECG OF 09-JUL-2018 19:15, VENT. RATE HAS INCREASED BY 40 BPM Confirmed by SHERRY ALEJANDRE MD ([id number]) on 12/21/2018 9:53:30 AM Referred By: Confirmed By:SHERRY ALEJANDRE MD
== END 2018-12-20 23:34 | disposition home or self-care (01) ==
LOC: JER 20:25
PROC: 3E0337Z Introduction of Electrolytic and Water Balance Substance into Peripheral Vein, Percutaneous Approach (ICD-10-PCS; principal; 2018-12-20)
DX: R00.2 Palpitations (principal); Q24.0 Dextrocardia; I10 Essential (primary) hypertension
CPT/HCPCS: 36415; 71045-TC-FY; 80053; 82550; 83735; 84443; 84484; 85025; 85379; 85610; 93005; 93010; 99284-25; J7030

== ENCOUNTER 2018-12-28 13:02 | Emergency (ER) | payer OTHER ==
[2018-12-28 13:17] VITALS: BP 127/81; PULSE 89; TEMP 98.4; BMI 26.6
--- NOTE | 2018-12-28 15:13 | PDOC ---
History of Present Illness - General Chief Complaint: Pain, Acute Stated Complaint: ABD PAIN Time Seen by Provider: 12/28/18 14:55 History Source: Patient Exam Limitations: No Limitations - History of Present Illness Initial Comments: 12/28/18 17:46 58 yo F presents with one day history of abdominal pain. She describes twisting intermittent 6/10 periumbilical abdominal pain that generalizes to bilateral lower quadrants. Denies alleviating or aggravating factors. She denies fever, chills, nausea, vomiting or diarrhea. Last BM was today and was normal with no blood. Denies CP,BELTRAN, SOB, palpiations, or sick contacts. She has history of hysterectomy and bilateral salpingoopherectomy. Denies urinary symptoms of frequency or dysuria. Timing/Duration: 24 hours Severity: moderate Past History - Travel Traveled outside of the country in the last 30 days: No Close contact w/someone who was outside of country & ill: No - Past Medical History Allergies/Adverse Reactions: Allergies Allergy/AdvReac Type Severity Reaction Status Date / Time aspirin Allergy Severe Swelling Verified 12/28/18 13:13 NSAIDS (Non-Steroidal Allergy Severe Swelling Verified 12/28/18 13:13 Anti-Inflamma shrimp Allergy Intermediate Hives Verified 12/28/18 13:13 Home Medications: Ambulatory Orders Carvedilol [Coreg] 12.5 mg PO BID 06/08/15 Omeprazole [Prilosec] 20 mg PO DAILY 06/08/15 Nifedipine ER [Procardia XL -] 90 mg PO DAILY 07/09/18 Calcium Carbonate/Vitamin D3 [Calcium 500 + Vit D Caplet] 1 each PO BID Loratadine [Claritin -] 10 mg PO DAILY 12/28/18 Multivitamin [Multiple Vitamins] 1 each PO DAILY 12/28/18 Sulfamethoxazole/Trimethoprim [Bactrim Ds -] 1 tab PO BID #14 tablet 12/28/18 Cardiac Disorders: No CVA: No COPD: No DVT: No GI Disorders: Yes (GERD) HTN: Yes Other medical history: situs inversus - Surgical History Abdominal Surgery: Yes Other Surgical History: 12/28/18 15:15 Hysterectomy bilateral salpingectomy - Reproductive History Is Patient Now?: No Endometriosis: Yes Oophorectomy: Yes - Immunization History Immunization Up to Date: Yes - Suicide/Smoking/Psychosocial Hx Have you felt down, depressed or hopeless?: No Have you felt little interest or pleasure in doing things?: No Have you had or do you have any thoughts to hurt yourself?: No Have you had or do you have any thoughts to hurt others?: No Smoking Status: No Smoking History: Never smoked Have you smoked in the past 12 months: No Number of Cigarettes Smoked Daily: 0 Hx Alcohol Use: No Drug/Substance Use Hx: No Substance Use Type: None Review of Systems - Review of Systems Constitutional: No: Chills, Diaphoresis, Fever HEENTM: No: Recent change in vision Respiratory: No: Cough, Orthopnea, Shortness of Breath Cardiac (ROS): No: Chest Pain, Edema, Chest Tightness ABD/GI: No: Nausea, Vomiting : No: Burning, Dysuria, Discharge, Hematuria Musculoskeletal: No: Back Pain Neurological: No: Headache, Numbness, Paresthesia Psychiatric: No: Anxiety, Depression *Physical Exam - Vital Signs Last Vital Signs Temp Pulse Resp BP Pulse Ox 98.4 F 89 16 127/81 99 12/28/18 13:15 12/28/18 13:15 12/28/18 13:15 12/28/18 13:15 12/28/18 13:15 - Physical Exam General Appearance: Yes: Appropriately Dressed. No: Apparent Distress HEENT: positive: JOÃO, Normal Voice Neck: positive: Trachea midline, Supple Respiratory/Chest: positive: Lungs Clear, Normal Breath Sounds. negative: Respiratory Distress, Accessory Muscle Use Cardiovascular: positive: Regular Rhythm, Regular Rate, S1, S2. negative: Edema ED Treatment Course - LABORATORY CBC & Chemistry Diagram: 12/28/18 15:18 12/28/18 14:53 Medical Decision Making - Medical Decision Making 12/28/18 17:49 Will send for basic labs including CBC, CMP, and UA. -based of these results will assess the need for CT scan. 12/28/18 18:39 UA shows UTI will send Bactrim DS for 7 day course and follow up with PMD. *DC/Admit/Observation/Transfer Diagnosis at time of Disposition: UTI (urinary tract infection) Qualifiers: Urinary tract infection type: site unspecified Hematuria presence: without hematuria Qualified Code(s): N39.0 - Urinary tract infection, site not specified - Discharge Dispostion Disposition: HOME Condition at time of disposition: Stable Decision to Admit order: No - Prescriptions Prescriptions: Sulfamethoxazole/Trimethoprim [Bactrim Ds -] 1 tab PO BID #14 tablet - Referrals - Patient Instructions Printed Discharge Instructions: DI for Urinary Tract Infection (UTI) Additional Instructions: You have been diagnosed with urinary tract infection. Medication has been sent to your pharmacy. Take 1 tablet twice a day for seven days. Most common side affect is nausea. Increase your activity as tolerated. Resume a heart healthy diet. If you experience worsening of symptoms or develop fever or chills please return to ER immediately. Print Language: PERSIAN - Post Discharge Activity
[2018-12-28 15:47] LABS: BASO % 0.2 % (0-2.0); HEMATOCRIT 39.7 % (32.4-45.2); HEMOGLOBIN 13.1 GM/dL (10.7-15.3); LYMPH % 31.8 % (8-40); MCHC 33.1 g/dl (32.0-36.0); MEAN CELL VOLUME 78.6 fl (80-96); MEAN PLT VOLUME 8.1 fl (7.5-11.1); MONO % 5.5 % (3.8-10.2); NEUT % 60.5 % (42.8-82.8); PLATELET COUNT 395 K/MM3 (134-434); RBC 5.05 M/mm3 (3.60-5.2); RDW 14.7 % (11.6-15.6); WHITE BLOOD COUNT 7.3 K/mm3 (4.0-10.0)
[2018-12-28 16:13] LABS: ALBUMIN 3.9 g/dl (3.4-5.0); BILIRUBIN,TOTAL 0.3 mg/dL (0.2-1); CALCIUM 8.5 mg/dL (8.5-10.1); CREATININE 0.6 mg/dL (0.55-1.3); POTASSIUM 3.3 mmol/L (3.5-5.1); TOT PROT 8.2 g/dl (6.4-8.2)
--- NOTE | 2018-12-28 16:29 | PDOC ---
Documentation entered by Eddie Vee SCRIBE, acting as scribe for Adolfo Agustin MD. Adolfo Agustin MD: This documentation has been prepared by the Mariusz castro Daniel, SCRIBE, under my direction and personally reviewed by me in its entirety. I confirm that the documentation accurately reflects all work, treatment, procedures, and medical decision making performed by me. Attending Attestation - Resident Resident Name: Balwinder Diaz - ED Attending Attestation I have performed the following: I have examined & evaluated the patient, The case was reviewed & discussed with the resident, I agree w/resident's findings & plan, Exceptions are as noted - HPI HPI: 12/28/18 15:26 The patient is a 58 year old with a past medical history of HTN, complete hysterectomy and b/l salpingoophrectomy (due to endometriosis), situs inversus and GERD here today for evaluation of abdominal pain. The patient reports that her abdominal pain began yesterday and describes it as periumbilical that radiates down to the lower quadrants, intermittent once an hour in 2-3 minute episodes, 6/10 in severity, and describes it as a cramping pain. She reports taking tylenol with minimal relief. Her last bowel movement was today and was normal. She is currently asymptmoatic without any abodminal pain. Patient denies headache, lightheadedness. Denies fever, chills. Denies chest pain, shortness of breath, dysuria, hematuria, diarrhea. Denies nausea, vomiting , diarrhea. Denies sick contacts, recent travel. Allergies: aspirin, NSAIDS, shrimp - Physicial Exam PE: 12/28/18 16:47 GENERAL: The patient is awake, alert, and fully oriented, Nontoxic - in no acute distress. HEAD: Normocephalic, atraumatic. EYES: extraocular movements intact, sclera anicteric, conjunctiva clear. ENT: Normal voice, Moist mucous membranes. NECK: Normal range of motion, supple LUNGS: Breath sounds equal, clear to auscultation bilaterally. No wheezes, no rhonchi, no rales. HEART: Regular rate and rhythm, normal S1 and S2 without murmur, rub or gallop. ABDOMEN: Soft, nontender, No guarding, no rebound. . No CVA tenderness EXTREMITIES: Normal range of motion, no edema. No clubbing or cyanosis. No cords, erythema, or tenderness. NEUROLOGICAL: No facial assymetry, Normal speech, PSYCH: Normal mood, normal affect. SKIN: Warm, Dry, normal turgor, - Medical Decision Making 12/28/18 15:22 58y F hx htn, gerd, s/p b/l salpingoophrectomy/hysterecotmy, situs inversus, presents with 24 hrs of abdominal pain that is periumbilical, intermittent, worse with movement. No imprvement with tylenol. No associated fever/chills, n/ v Pain is twisting pressure like pain that is intermittent, lasting minutes at a time without associated nausea, vomiting. On exam the patient is well-appearing, in no distress, soft nontender abdomen The front of the patient's pain includes possible kidney stones, mild enteritis And blood work will reassess at this point as she is asymptomatic we'll defer imaging
[2018-12-28 18:10] LABS: EPI CELLS 4.6 /HPF (0-5/HPF); URINE APPEARANCE CLEAR; URINE BACTERIA 245.3 /hpf (NEGATIVE); URINE BILIRUBIN NEGATIVE (NEGATIVE); URINE CASTS 2 /lpf (0-8); URINE COLOR YELLOW; URINE GLUCOSE (UA) NEGATIVE (NEGATIVE); URINE KETONE NEGATIVE (NEGATIVE); URINE LEUK ESTERASE 2+ (NEGATIVE); URINE NITRITE NEGATIVE (NEGATIVE); URINE PROTEIN NEGATIVE (NEGATIVE); URINE UROBILINOGEN 0.2 mg/dL (0.2-1.0); URINE WBC 11 /hpf (0-5)
[2018-12-28 18:41] LABS: URINE RBC 5.7 /hpf (0-4)
== END 2018-12-28 19:06 | disposition home or self-care (01) ==
LOC: JER 13:02
DX: N39.0 Urinary tract infection, site not specified (principal); I10 Essential (primary) hypertension; K21.9 Gastro-esophageal reflux disease without esophagitis; Z90.79 Acquired absence of other genital organ(s); Z90.722 Acquired absence of ovaries, bilateral
CPT/HCPCS: 36415; 80053; 81003; 83690; 85025; 99282-25

== ENCOUNTER 2019-09-19 17:53 | Emergency (ER) | payer OTHER ==
[2019-09-19 18:04] VITALS: BMI 26.9
--- NOTE | 2019-09-19 19:20 | PDOC ---
History of Present Illness - General Chief Complaint: Palpitations Stated Complaint: PALPITATIONS Time Seen by Provider: 09/19/19 19:16 History Source: Patient Exam Limitations: No Limitations - History of Present Illness Initial Comments: 09/19/19 19:17 PCP: None Cards: Dr. L[facility]pez at [facility] HPI: 59yo F PMH dextrocardia, situs inversus and HTN here today complaining of palpitations that started at 4:30PM. Patient reports that palpitations resolved around 6:30 shortly after arriving in the ED. Denies any accompanying chest pain , SOB. Reports prior palpitations abotu 1 year ago, has follows with cardiology with negative ECHO, stress test, and holter monitor - all over 1 year ago. Reports her palpitations have never required intervention / "nothing was done" for any of her prior episodes. Denies having a PCP or routine blood testing. Says she had a normal cardiology appointment late in 2019. Endorses chronic, daily RLE swelling, without pain, since a knee replacement in May 2019. Patient denies recent travel, history of blood clots in self and family. Denies cough, fever, nausea, vomiting, diarrhea. All: ASA, NSAIDs Meds: Per chart PMH: As above PSH: Per chart SHx: Denies toxic habits Past History - Travel Traveled outside of the country in the last 30 days: No Close contact w/someone who was outside of country & ill: No - Past Medical History Allergies/Adverse Reactions: Allergies Allergy/AdvReac Type Severity Reaction Status Date / Time aspirin Allergy Severe Swelling Verified 09/19/19 18:04 NSAIDS (Non-Steroidal Allergy Severe Swelling Verified 09/19/19 18:04 Anti-Inflamma shrimp Allergy Intermediate Hives Verified 09/19/19 18:04 Home Medications: Ambulatory Orders Carvedilol [Coreg] 12.5 mg PO BID 06/08/15 Omeprazole [Prilosec] 20 mg PO DAILY 06/08/15 Nifedipine ER [Procardia XL -] 90 mg PO DAILY 07/09/18 Calcium Carbonate/Vitamin D3 [Calcium 500 + Vit D Caplet] 1 each PO BID Loratadine [Claritin -] 10 mg PO DAILY 12/28/18 Multivitamin [Multiple Vitamins] 1 each PO DAILY 12/28/18 Sulfamethoxazole/Trimethoprim [Bactrim Ds -] 1 tab PO BID #14 tablet 12/28/18 Cardiac Disorders: No CVA: No COPD: No DVT: No GI Disorders: Yes (GERD) HTN: Yes - Surgical History Abdominal Surgery: Yes - Reproductive History Endometriosis: Yes Oophorectomy: Yes - Immunization History Immunization Up to Date: Yes - Psycho Social/Smoking Cessation Hx Smoking Status: No Smoking History: Never smoked Have you smoked in the past 12 months: No Number of Cigarettes Smoked Daily: 0 Hx Alcohol Use: No Drug/Substance Use Hx: No Substance Use Type: None Review of Systems - Review of Systems Able to Perform ROS?: Yes Is the patient limited Chinese proficient: Yes Constitutional: No: Chills, Diaphoresis, Fever, Weakness HEENTM: No: Recent change in vision, Nose Congestion, Throat Pain Respiratory: No: Cough, Shortness of Breath, SOB with Exertion, SOB at Rest, Wheezing, Productive cough, Hemoptysis Cardiac (ROS): Yes: Palpitations. No: Chest Pain, Edema, Irregular Heart Rate, Lightheadedness, Syncope, Chest Tightness ABD/GI: No: Constipated, Diarrhea, Nausea, Vomiting : No: Burning, Dysuria, Discharge Musculoskeletal: No: Muscle Pain, Muscle Weakness Integumentary: No: Bruising, Pruritus, Rash, Sweating Neurological: No: Headache, Numbness, Tingling, Weakness Psychiatric: No: Stressors, Change in Appetite Endocrine: No: Increased Thirst, Increased Urine Hematologic/Lymphatic: No: Anemia, Blood Clots, Easy Bleeding All Other Systems: Reviewed and Negative *Physical Exam - Vital Signs Last Vital Signs Temp Pulse Resp BP Pulse Ox 98.4 F 108 H 18 120/71 98 09/19/19 18:01 09/19/19 18:01 09/19/19 18:01 09/19/19 18:01 09/19/19 18:01 - Physical Exam 09/19/19 19:18 Vitals reviewed, notable for tachycardia to 100s, afebrile, otherwise hemodynamically stable GEN: Well appearing, appears stated age, NAD, comfortable. AAOx3. HEENT: NCAT, EOMI, PERRL. Sclera anicteric, noninjected. No facial asymmetry. Moist mucous membranes. Normal voice. Trachea midline. CV: RRR, S1/S2, no murmurs / rubs / gallops appreciated. Auscultated on R chest. LUNG: CTAB, normal work of breathing. No wheezes, rales, rhonchi. No cough. Speaking full sentences. GI: Soft, NTND, +BS, no guarding, no rebound. No masses. Neg CVAT b/l. EXTREMITIES: 2+ distal pulses. No LE edema. No obvious deformities of all extremities. SKIN: Warm, dry, no rashes appreciated, non-jaundiced. PSYCH: Normal mood and affect. Cooperative and appropriate. NEURO: CN grossly intact. Moving all extremities well. Normal strength and sensation grossly. ED Treatment Course - LABORATORY CBC & Chemistry Diagram: 09/19/19 20:10 09/19/19 21:43 Medical Decision Making - Medical Decision Making 09/19/19 19:17 59yo F PMH dextrocardia, situs inversus and HTN here today complaining of palpitations that started at 4:30 PM. - CBC, CMP, Cardiac Profile, TSH, PT/INR - EKG - 1L IVF 09/19/19 21:25 - CMP/CardiacProfile/TSH Reordered, Hemolyzed - EKbpm, NSR, axis c/w situs inversus, QTc 467, normal QRS width, no ischemic changes noted - CBC with mild leukocytosis (10.2), no anemia, caogs wnl 09/19/19 23:05 - CMP unremarkable, mildly low K Dispo: Home, cardiology follow up Discharge - Discharge Information Problems reviewed: Yes Clinical Impression/Diagnosis: Palpitations Condition: Improved Disposition: HOME - Admission No - Follow up/Referral Referrals: [facility] [Provider Group] - Patient Discharge Instructions Patient Printed Discharge Instructions: DI for Palpitations Additional Instructions: You were seen and evaluated in the [facility] for Palpitations. Please continue your home medications as directed. Follow up with your optometric aide in the next week to discuss continued outpatient evaluation and care. A primary care provider referral ([facility]) has been provided for you for your ongoing medical care needs. Return to the ED for any new or concerning symptoms. These may include but are not limited to: chest pain, shortness of breath, feeling like you are going to pass out or passing out. - Post Discharge Activity
[2019-09-19] MEDS ORDERED: SODIUM CHLORIDE 0.9% 500 ML INFUS.BAG IV ONE (19:47)
[2019-09-19 20:27] LABS: BASO % 0.6 % (0-2.0); EOS % 1.3 % (0-4.5); HEMATOCRIT 36.9 % (32.4-45.2); HEMOGLOBIN 12.2 GM/dL (10.7-15.3); LYMPH % 20.6 % (8-40); MCH 25.1 pg (25.7-33.7); MCHC 33.1 g/dl (32.0-36.0); MEAN CELL VOLUME 76.1 fl (80-96); MEAN PLT VOLUME 8.2 fl (7.5-11.1); NEUT % 72.5 % (42.8-82.8); PLATELET COUNT 427 K/MM3 (134-434); RBC 4.84 M/mm3 (3.60-5.2); RDW 16.6 % (11.6-15.6); WHITE BLOOD COUNT 10.2 K/mm3 (4.0-10.0)
[2019-09-19 20:38] LABS: INR 0.98 (0.83-1.09); PROTHROMBIN TIME (PATIENT) 11.6 SEC (9.7-13.0)
--- NOTE | 2019-09-19 21:16 | PDOC ---
Attending Attestation - Resident Resident Name: JtEdgardo - ED Attending Attestation I have performed the following: I have examined & evaluated the patient, The case was reviewed & discussed with the resident, I agree w/resident's findings & plan, Exceptions are as noted - HPI HPI: 09/19/19 21:13 59yoF w/ longstanding hisory of palpitations, muliple prior holter monitors unrevealing, followed by cards presnet w/ same. Typicl episode of her palpiations x multiple hours today, resolved prior to ED presnetaiton. pt did not check her own HR during episode. no other complaints. - Physicial Exam PE: 09/19/19 21:15 NAD, welll appearing RRR CTABL A&O x 3 EKG NSR, no e/o arrhythmia potential. - Medical Decision Making 09/19/19 21:15 59yoF w/ longstanding hx of intermitntet palpitaitons presnets w/ same today. - labs - ekg - monitoring analyst - ivf - Dispo.
[2019-09-19 22:50] VITALS: TEMP 97.9
[2019-09-19 22:55] LABS: ALBUMIN 3.9 g/dl (3.4-5.0); ALK PHOS 213 U/L (45-117); ANION GAP 9 MMOL/L (8-16); BILIRUBIN,TOTAL 0.2 mg/dL (0.2-1); BLOOD UREA NITROGEN 12.4 mg/dL (7-18); CALCIUM 8.8 mg/dL (8.5-10.1); CHLORIDE 105 mmol/L (98-107); CO2 26 mmol/L (21-32); CREATININE 0.7 mg/dL (0.55-1.3); GLUCOSE,RANDOM 131 mg/dL (74-106); POTASSIUM 3.2 mmol/L (3.5-5.1); SGOT/AST 15 U/L (15-37); SGPT/ALT 27 U/L (13-61); SODIUM 140 mmol/L (136-145); TOT PROT 8.3 g/dl (6.4-8.2)
[2019-09-19 23:30] VITALS: BP 127/90; PULSE 96
--- NOTE | 2019-09-20 09:31 | EKG ---
Test Reason : Blood Pressure : / mmHG Vent. Rate : 089 BPM Atrial Rate : 089 BPM P-R Int : 184 ms QRS Dur : 078 ms QT Int : 384 ms P-R-T Axes : 000 196 146 degrees QTc Int : 467 ms POOR DATA QUALITY, INTERPRETATION MAY BE ADVERSELY AFFECTED NORMAL SINUS RHYTHM Consider situs invertus Likely normal ECG WHEN COMPARED WITH ECG OF 20-DEC-2018 20:29, NO SIGNIFICANT CHANGE WAS FOUND Confirmed by Latasha Pisano ([id number]) on 09/20/2019 9:30:56 AM Referred By: Confirmed By:Latasha Pisano
--- NOTE | 2019-09-23 14:57 | PDOC ---
Documentation entered by Irma Madrigal SCRIBE, acting as scribe for Maya Michael MD. Maya Michael MD: This documentation has been prepared by the rojelioibe, Irma Madrigal SCRIBE, under my direction and personally reviewed by me in its entirety. I confirm that the documentation accurately reflects all work, treatment, procedures, and medical decision making performed by me. Attending Attestation - Resident Resident Name: Edgardo Waters - ED Attending Attestation I have performed the following: I have examined & evaluated the patient, The case was reviewed & discussed with the resident, I agree w/resident's findings & plan, Exceptions are as noted - HPI HPI: 09/19/19 20:06 The patient is a 59-year-old female with a past medical history significant for HTN and dextrocardia, situs inversus, who presents to the emergency department with palpitations. The patient presents with palpitations since 4:30 pm and epigastric discomfort, which has since been resolved. The patient reports a history of palpitations in the past, reports following up with a [employer] Operations Superintendent at [facility], where she had a negative stress test and an echo. Denies recent travel. Denies chest pain or shortness of breath. - Physicial Exam PE: 09/19/19 20:15 NAD, welll appearing RRR CTABL A&O x 3 - Medical Decision Making 09/23/19 14:56 59yoF w/ dextrocardia c/o palpitations. Well appearing - ekg - labs - Dispo per results.
== END 2019-09-19 23:31 | disposition home or self-care (01) ==
LOC: JER 17:53
DX: R00.2 Palpitations (principal); I10 Essential (primary) hypertension; Q89.3 Situs inversus; K21.9 Gastro-esophageal reflux disease without esophagitis; Z90.79 Acquired absence of other genital organ(s); Z91.013 Allergy to seafood; Z88.6 Allergy status to analgesic agent
CPT/HCPCS: 36415; 80053; 82550; 84443; 84484; 85025; 85610; 93005; 93010; 99284-25

== ENCOUNTER 2020-09-11 11:24 | Emergency (ER) | payer OTHER ==
[2020-09-11 12:18] VITALS: TEMP 99.1; BMI 28.5
[2020-09-11 12:32] LABS: BASO % 0.3 % (0-2.0); HEMATOCRIT 24.7 % (32.4-45.2); LYMPH % 22.5 % (8-40); MCH 24.4 pg (25.7-33.7); MCHC 32.3 g/dl (32.0-36.0); MEAN CELL VOLUME 75.4 fl (80-96); MEAN PLT VOLUME 7.9 fl (7.5-11.1); MONO % 5.2 % (3.8-10.2); PLATELET COUNT 383 K/MM3 (134-434); RBC 3.28 M/mm3 (3.60-5.2); RDW 15.9 % (11.6-15.6); WHITE BLOOD COUNT 6.7 K/mm3 (4.0-10.0)
[2020-09-11 12:42] LABS: INR 1.08 (0.83-1.09); PROTHROMBIN TIME (PATIENT) 13.3 SEC (9.7-13.0)
[2020-09-11 12:44] LABS: ACTIVATED PTT 25.7 SECONDS (25.2-36.5)
[2020-09-11 12:50] LABS: CHLORIDE 101 mmol/L (98-107); POTASSIUM 3.1 mmol/L (3.5-5.1); SODIUM 138 mmol/L (136-145)
[2020-09-11 12:52] LABS: ALBUMIN 2.9 g/dl (3.4-5.0); ANION GAP 7 MMOL/L (8-16); BLOOD UREA NITROGEN 6.1 mg/dL (7-18); CALCIUM 8.3 mg/dL (8.5-10.1); CO2 29 mmol/L (21-32); GLUCOSE,RANDOM 172 mg/dL (74-106)
[2020-09-11 12:56] LABS: CREATININE 0.6 mg/dL (0.55-1.3); SGOT/AST 18 U/L (15-37); SGPT/ALT 22 U/L (13-61)
[2020-09-11 12:57] LABS: BILIRUBIN,TOTAL 0.4 mg/dL (0.2-1)
[2020-09-11 12:58] LABS: ALK PHOS 114 U/L (45-117); TOT PROT 7.3 g/dl (6.4-8.2)
[2020-09-11] MEDS ORDERED: methylPREDNISolone NA SUCC 125 MG/2 ML VIAL IVPB ONE (13:21)
[2020-09-11] MEDS ORDERED: methylPREDNISolone NA SUCC 125 MG/2 ML VIAL ONE (13:26)
[2020-09-11 15:22] VITALS: BP 134/70; PULSE 93
== END 2020-09-11 16:08 | disposition home or self-care (01) ==
LOC: JER 11:24
PROC: 3E033GC Introduction of Other Therapeutic Substance into Peripheral Vein, Percutaneous Approach (ICD-10-PCS; principal; 2020-09-11)
DX: R00.2 Palpitations (principal)
CPT/HCPCS: 36415; 71275-TC; 80053; 82550; 84484; 85025; 85379; 85610; 85730; 93005; 93010; 93971-TC; 99284-25; C9803; U0003

== ENCOUNTER 2020-11-04 21:11 | Emergency (ER) | payer OTHER ==
[2020-11-04 21:17] VITALS: TEMP 98.6; BMI 28.3
[2020-11-04 22:45] LABS: EOS % 1.9 % (0-4.5); HEMOGLOBIN 9.5 GM/dL (10.7-15.3); LYMPH % 22.5 % (8-40); MCH 21.1 pg (25.7-33.7); MCHC 30.7 g/dl (32.0-36.0); MEAN CELL VOLUME 68.7 fl (80-96); MONO % 4.7 % (3.8-10.2); NEUT % 69.9 % (42.8-82.8); PLATELET COUNT 482 K/MM3 (134-434); RBC 4.52 M/mm3 (3.60-5.2); RDW 17.9 % (11.6-15.6); WHITE BLOOD COUNT 8.7 K/mm3 (4.0-10.0)
[2020-11-04 23:03] LABS: CHLORIDE 103 mmol/L (98-107); POTASSIUM 3.4 mmol/L (3.5-5.1); SODIUM 137 mmol/L (136-145)
[2020-11-04 23:05] LABS: ALBUMIN 3.6 g/dl (3.4-5.0); ANION GAP 7 MMOL/L (8-16); BLOOD UREA NITROGEN 12.3 mg/dL (7-18); CALCIUM 8.7 mg/dL (8.5-10.1); CO2 27 mmol/L (21-32); MAGNESIUM 1.9 mg/dL (1.8-2.4)
[2020-11-04 23:06] LABS: GLUCOSE,RANDOM 215 mg/dL (74-106)
[2020-11-04 23:08] LABS: CREATININE 0.8 mg/dL (0.55-1.3); SGOT/AST 16 U/L (15-37); SGPT/ALT 24 U/L (13-61)
[2020-11-04 23:09] LABS: PHOSPHOROUS 2.7 mg/dL (2.5-4.9)
[2020-11-04 23:10] LABS: BILIRUBIN,TOTAL 0.2 mg/dL (0.2-1); TOT PROT 8.2 g/dl (6.4-8.2)
[2020-11-04 23:11] LABS: ALK PHOS 238 U/L (45-117)
[2020-11-04 23:13] LABS: ANISOCYTOSIS 2+; MACROCYTOSIS 0; PLATELET ESTIMATE INCREASED
[2020-11-04 23:57] VITALS: BP 129/88; PULSE 102
== END 2020-11-04 23:56 | disposition home or self-care (01) ==
LOC: JER 21:11
DX: R00.2 Palpitations (principal)
CPT/HCPCS: 36415; 71046-TC-FY; 80053; 83735; 84100; 84484; 85025; 93005; 93010; 99285-25

== ENCOUNTER 2021-04-22 13:43 | Emergency (ER) | payer OTHER ==
[2021-04-22 13:47] VITALS: BP 129/83; PULSE 83; TEMP 98; BMI 28.7
== END 2021-04-22 15:33 | disposition home or self-care (01) ==
LOC: JER 13:43
DX: M79.604 Pain in right leg (principal); M79.605 Pain in left leg
CPT/HCPCS: 99283-25

== ENCOUNTER 2021-05-06 15:11 | Emergency (ER) | payer OTHER ==
[2021-05-06 15:31] VITALS: BP 132/81; PULSE 98; TEMP 98.6; BMI 28.7
[2021-05-06] MEDS ORDERED: PSEUDOEPHEDRINE HCL 30 MG TABLET PO ONE (15:59)
[2021-05-06] MEDS ORDERED: PSEUDOEPHEDRINE HCL 60 MG TABLET ONE (16:07)
== END 2021-05-06 16:11 | disposition home or self-care (01) ==
LOC: JERFT 15:11
DX: H92.01 Otalgia, right ear (principal)
CPT/HCPCS: 99283-25

== ENCOUNTER 2021-06-13 13:14 | Emergency (ER) | payer OTHER ==
[2021-06-13 13:38] VITALS: BP 146/77; PULSE 90; TEMP 98.3; BMI 28.7
[2021-06-13 16:13] LABS: EPI CELLS >36 /uL (0-25.1); HYALINE CASTS 2 /uL (0-3.1); PH,URINE 7.5 (5.0-8.0); URINE APPEARANCE CLEAR; URINE BACTERIA 902 /uL (0-1359); URINE BILIRUBIN NEGATIVE (NEGATIVE); URINE COLOR YELLOW; URINE GLUCOSE (UA) NEGATIVE (NEGATIVE); URINE KETONE NEGATIVE (NEGATIVE); URINE LEUK ESTERASE 1+ (NEGATIVE); URINE NITRITE NEGATIVE (NEGATIVE); URINE PROTEIN NEGATIVE (NEGATIVE); URINE RBC 9 /uL (0-23.9); URINE UROBILINOGEN 0.2 mg/dL (0.2-1.0); URINE WBC 47 /uL (0-25.8)
[2021-06-13 17:40] LABS: HEMOGLOBIN 10.8 GM/dL (10.7-15.3); MCH 20.6 pg (25.7-33.7); MCHC 31.9 g/dl (32.0-36.0); MEAN CELL VOLUME 64.7 fl (80-96); MEAN PLT VOLUME 7.6 fl (7.5-11.1); PLATELET COUNT 499 10^3/uL (134-434); RBC 5.25 M/mm3 (3.60-5.2); RDW 19.4 % (11.6-15.6); WHITE BLOOD COUNT 8.5 K/mm3 (4.0-10.0)
[2021-06-13 17:46] LABS: INR 1.03 (0.83-1.09)
[2021-06-13 17:49] LABS: ACTIVATED PTT 27.3 SECONDS (25.2-36.5)
[2021-06-13 18:00] LABS: ALBUMIN 3.8 g/dl (3.4-5.0); BLOOD UREA NITROGEN 10.8 mg/dL (7-18)
[2021-06-13 18:04] LABS: BILIRUBIN,TOTAL 0.3 mg/dL (0.2-1); CREATININE 0.7 mg/dL (0.55-1.3)
[2021-06-13 18:06] LABS: TOT PROT 8.9 g/dl (6.4-8.2)
[2021-06-13] MEDS ORDERED: POTASSIUM CHLORIDE TABS 20 MEQ TABLET.ER (FP) PO ONE ×2 (18:23→19:07)
[2021-06-13 18:36] LABS: ANISOCYTOSIS 2+; MACROCYTOSIS 0; PLATELET ESTIMATE INCREASED
== END 2021-06-13 19:47 | disposition home or self-care (01) ==
LOC: JER 13:14
DX: I88.0 Nonspecific mesenteric lymphadenitis (principal)
CPT/HCPCS: 36415; 74177-TC; 80053; 81003; 83735; 85025; 85610; 85730; 86850; 86900; 86901; 87086; 99285-25; Q9967

== ENCOUNTER 2021-06-21 09:14 | Emergency (ER) | payer OTHER ==
[2021-06-21 09:46] VITALS: BMI 28.5
[2021-06-21] MEDS ORDERED: ACETAMINOPHEN 325 MG TABLET (FP) PO ONE (11:04)
[2021-06-21] MEDS ORDERED: ACETAMINOPHEN 325 MG TABLET (FP) ONE (11:44)
[2021-06-21 12:18] LABS: BASO % 1.2 % (0-2.0); EOS % 2.6 % (0-4.5); HEMATOCRIT 32.8 % (32.4-45.2); HEMOGLOBIN 10.3 GM/dL (10.7-15.3); LYMPH % 28.3 % (8-40); MCH 20.5 pg (25.7-33.7); MCHC 31.5 g/dl (32.0-36.0); MEAN CELL VOLUME 65.1 fl (80-96); MEAN PLT VOLUME 7.4 fl (7.5-11.1); MONO % 3.4 % (3.8-10.2); NEUT % 64.5 % (42.8-82.8); PLATELET COUNT 428 10^3/uL (134-434); RBC 5.04 M/mm3 (3.60-5.2); RDW 19.7 % (11.6-15.6)
[2021-06-21 12:42] LABS: CHLORIDE 103 mmol/L (98-107); SODIUM 138 mmol/L (136-145)
[2021-06-21 12:44] LABS: ALBUMIN 3.8 g/dl (3.4-5.0); ANION GAP 7 MMOL/L (8-16); BLOOD UREA NITROGEN 9.5 mg/dL (7-18); CALCIUM 8.9 mg/dL (8.5-10.1); CO2 28 mmol/L (21-32)
[2021-06-21 12:45] LABS: GLUCOSE,RANDOM 133 mg/dL (74-106)
[2021-06-21 12:47] LABS: SGOT/AST 12 U/L (15-37); SGPT/ALT 21 U/L (13-61)
[2021-06-21 12:48] LABS: CREATININE 0.6 mg/dL (0.55-1.3)
[2021-06-21 12:49] LABS: BILIRUBIN,TOTAL 0.3 mg/dL (0.2-1); TOT PROT 8.6 g/dl (6.4-8.2)
[2021-06-21 12:50] LABS: ALK PHOS 202 U/L (45-117)
[2021-06-21] MEDS ORDERED: POTASSIUM CHLORIDE ORAL LIQUID 20 MEQ/15 ML PO ONE ×2 (12:50)
[2021-06-21] MEDS ORDERED: POTASSIUM CHLORIDE TABS 20 MEQ TABLET.ER (FP) PO ONE ×3 (13:32→13:33)
[2021-06-21 14:10] VITALS: BP 144/89; PULSE 77; TEMP 98
[2021-06-21 14:32] LABS: ANISOCYTOSIS 1+; MACROCYTOSIS 0; OVALOCYTE 1+; PLATELET ESTIMATE NORMAL; TEAR DROP CELLS 1+
== END 2021-06-21 14:10 | disposition home or self-care (01) ==
LOC: JER 09:14
DX: R00.2 Palpitations (principal); E87.6 Hypokalemia
CPT/HCPCS: 36415; 71046-TC-FY; 80053; 82550; 83735; 84443; 84484; 85025; 93005; 93010; 99284-25

== ENCOUNTER 2021-07-16 08:28 | Emergency (ER) | payer OTHER ==
[2021-07-16 08:41] VITALS: TEMP 98.2; BMI 29.2
[2021-07-16] MEDS ORDERED: ACETAMINOPHEN 500 MG TABLET (FP) PO ONE (09:35)
[2021-07-16 09:49] LABS: PH,URINE 7.5 (5.0-8.0); URINE APPEARANCE CLEAR; URINE BILIRUBIN NEGATIVE (NEGATIVE); URINE COLOR YELLOW; URINE GLUCOSE (UA) NEGATIVE (NEGATIVE); URINE KETONE NEGATIVE (NEGATIVE); URINE LEUK ESTERASE NEGATIVE (NEGATIVE); URINE NITRITE NEGATIVE (NEGATIVE); URINE PROTEIN TRACE (NEGATIVE); URINE UROBILINOGEN 0.2 mg/dL (0.2-1.0)
[2021-07-16 09:51] LABS: BASO % 0.5 % (0-2.0); EOS % 2.4 % (0-4.5); HEMATOCRIT 32.4 % (32.4-45.2); HEMOGLOBIN 10.3 GM/dL (10.7-15.3); LYMPH % 26.9 % (8-40); MCH 21.4 pg (25.7-33.7); MCHC 31.7 g/dl (32.0-36.0); MEAN CELL VOLUME 67.4 fl (80-96); MEAN PLT VOLUME 7.9 fl (7.5-11.1); NEUT % 64.2 % (42.8-82.8); PLATELET COUNT 414 10^3/uL (134-434); RDW 20.1 % (11.6-15.6); WHITE BLOOD COUNT 5.6 K/mm3 (4.0-10.0)
[2021-07-16 10:04] LABS: CHLORIDE 105 mmol/L (98-107); SODIUM 140 mmol/L (136-145)
[2021-07-16 10:07] LABS: ALBUMIN 3.6 g/dl (3.4-5.0); ANION GAP 9 MMOL/L (8-16); BLOOD UREA NITROGEN 10.6 mg/dL (7-18); CALCIUM 8.6 mg/dL (8.5-10.1); CO2 26 mmol/L (21-32); GLUCOSE,RANDOM 145 mg/dL (74-106)
[2021-07-16 10:10] LABS: CREATININE 0.6 mg/dL (0.55-1.3); SGOT/AST 12 U/L (15-37); SGPT/ALT 20 U/L (13-61)
[2021-07-16 10:12] LABS: BILIRUBIN,TOTAL 0.4 mg/dL (0.2-1)
[2021-07-16 10:13] LABS: ALK PHOS 168 U/L (45-117); TOT PROT 8.2 g/dl (6.4-8.2)
[2021-07-16 10:40] LABS: ANISOCYTOSIS 2+; MACROCYTOSIS 0; PLATELET ESTIMATE NORMAL
[2021-07-16] MEDS ORDERED: ACETAMINOPHEN 325 MG TABLET (FP) ONE (12:14)
[2021-07-16] MEDS ORDERED: POTASSIUM CHLORIDE TABS 20 MEQ TABLET.ER (FP) PO ONE ×2 (15:53→16:03)
[2021-07-16 16:12] VITALS: BP 123/76; PULSE 82
== END 2021-07-16 16:00 | disposition home or self-care (01) ==
LOC: JER 08:28
DX: E87.6 Hypokalemia (principal); R07.9 Chest pain, unspecified
CPT/HCPCS: 36415; 71046-TC-FY; 80053; 81003; 82550; 84484; 85025; 87086; 93005; 93010; 99285-25

== ENCOUNTER 2021-07-18 13:02 | Emergency (ER) | payer OTHER ==
[2021-07-18 13:38] VITALS: BP 154/94; PULSE 88; TEMP 98.4; BMI 27.4
[2021-07-18 14:45] LABS: BASO % 1.1 % (0-2.0); HEMOGLOBIN 11.1 GM/dL (10.7-15.3); LYMPH % 30.2 % (8-40); MCH 21.7 pg (25.7-33.7); MCHC 31.9 g/dl (32.0-36.0); MEAN CELL VOLUME 68.1 fl (80-96); MEAN PLT VOLUME 8.1 fl (7.5-11.1); MONO % 4.9 % (3.8-10.2); NEUT % 61.8 % (42.8-82.8); PLATELET COUNT 434 10^3/uL (134-434); RBC 5.13 M/mm3 (3.60-5.2); RDW 20.8 % (11.6-15.6); WHITE BLOOD COUNT 7.6 K/mm3 (4.0-10.0)
[2021-07-18 15:06] LABS: BLOOD UREA NITROGEN 12.4 mg/dL (7-18); CALCIUM 9.2 mg/dL (8.5-10.1)
[2021-07-18 15:09] LABS: CREATININE 0.7 mg/dL (0.55-1.3)
[2021-07-18 15:11] LABS: BILIRUBIN,TOTAL 0.3 mg/dL (0.2-1); TOT PROT 8.9 g/dl (6.4-8.2)
[2021-07-18 15:40] LABS: URINE APPEARANCE CLEAR; URINE BILIRUBIN NEGATIVE (NEGATIVE); URINE COLOR YELLOW; URINE GLUCOSE (UA) NEGATIVE (NEGATIVE); URINE KETONE NEGATIVE (NEGATIVE); URINE LEUK ESTERASE NEGATIVE (NEGATIVE); URINE NITRITE NEGATIVE (NEGATIVE); URINE PROTEIN NEGATIVE (NEGATIVE); URINE UROBILINOGEN 0.2 mg/dL (0.2-1.0)
== END 2021-07-18 19:06 | disposition home or self-care (01) ==
LOC: JER 13:02
DX: R00.2 Palpitations (principal); R07.9 Chest pain, unspecified
CPT/HCPCS: 36415; 71046-TC-FY; 80053; 81003; 82550; 84443; 84484; 85025; 87086; 93005; 93010; 99285-25

== ENCOUNTER 2021-10-26 02:33 | Observation (INO) | payer OTHER ==
[2021-10-26] MEDS ORDERED: dilTIAZem HCL 50 MG/10 ML - 10 ML VIAL IVPUSH ONE ×2 (03:24→06:10)
[2021-10-26] MEDS ORDERED: dilTIAZem HCL 125 MG/25 ML - 25 ML VIAL ONE ×2 (04:29→06:20)
[2021-10-26 04:51] LABS: BASO % 0.2 % (0-2.0); EOS % 1.4 % (0-4.5); HEMOGLOBIN 11.3 GM/dL (10.7-15.3); LYMPH % 21.4 % (8-40); MCH 22.9 pg (25.7-33.7); MCHC 32.2 g/dl (32.0-36.0); MEAN CELL VOLUME 71.3 fl (80-96); MEAN PLT VOLUME 7.9 fl (7.5-11.1); MONO % 5.9 % (3.8-10.2); NEUT % 71.1 % (42.8-82.8); PLATELET COUNT 419 10^3/uL (134-434); RBC 4.92 M/mm3 (3.60-5.2); RDW 18.8 % (11.6-15.6)
[2021-10-26 05:14] LABS: BLOOD UREA NITROGEN 11.6 mg/dL (7-18); CALCIUM 9.1 mg/dL (8.5-10.1)
[2021-10-26 05:17] LABS: CREATININE 0.5 mg/dL (0.55-1.3)
[2021-10-26 05:19] LABS: BILIRUBIN,TOTAL 0.3 mg/dL (0.2-1); TOT PROT 8.5 g/dl (6.4-8.2)
[2021-10-26] MEDS ORDERED: POTASSIUM CHLORIDE TABS 20 MEQ TABLET.ER (FP) PO ONE ×2 (05:40→05:52)
[2021-10-26] MEDS ORDERED: NIFEdipine E.R. 90 MG TABLET PO ONE (06:10)
[2021-10-26] MEDS ORDERED: CARVEDILOL 12.5 MG TABLET (FP) PO ONE ×2 (08:49→09:00)
[2021-10-26] MEDS ORDERED: CARVEDILOL 12.5 MG TABLET (FP) ONE ×2 (08:52→09:09)
[2021-10-26] MEDS ORDERED: CARVEDILOL 25 MG TABLET (FP) ONE (09:08)
[2021-10-26] MEDS: KCL 10 MEQ IVPB 10 MEQ/100 ML INFUS.BAG IVPB SCH ×3 (09:15→11:31)
[2021-10-26] MEDS ORDERED: CARVEDILOL 12.5 MG TABLET (FP) PO SCH ×2 (10:00→22:00)
[2021-10-26] MEDS ORDERED: ENOXAPARIN NA (PORCINE) 40 MG/0.4 ML DISP.SYRIN SQ SCH (10:00)
[2021-10-26] MEDS ORDERED: ENOXAPARIN NA (PORCINE) 40 MG/0.4 ML DISP.SYRIN SQ ONE (10:05)
[2021-10-26] MEDS ORDERED: METOPROLOL TARTRATE 5 MG/5 ML VIAL IVPUSH PRN (10:13)
[2021-10-26] MEDS: INSULIN SLIDING SCALE (NOVOLOG) 1 VIAL SQ SCH ×2 (11:43→17:11)
[2021-10-26 13:41] VITALS: BMI 27.3
[2021-10-26] MEDS: APIXABAN 5 MG TABLET PO SCH (21:38)
[2021-10-26] MEDS: CARVEDILOL 12.5 MG TABLET (FP) PO SCH (21:38)
[2021-10-26] MEDS ORDERED: ATORVASTATIN CA 40 MG TABLET (FP) PO SCH (22:00)
[2021-10-27 07:45] LABS: CALCIUM 8.3 mg/dL (8.5-10.1)
[2021-10-27 07:47] LABS: BLOOD UREA NITROGEN 10.4 mg/dL (7-18); HEMATOCRIT 31.3 % (32.4-45.2); HEMOGLOBIN 10.1 GM/dL (10.7-15.3); MAGNESIUM 1.9 mg/dL (1.8-2.4); MCHC 32.2 g/dl (32.0-36.0); MEAN CELL VOLUME 71.3 fl (80-96); PLATELET COUNT 374 10^3/uL (134-434); RBC 4.39 M/mm3 (3.60-5.2); WHITE BLOOD COUNT 4.4 K/mm3 (4.0-10.0)
[2021-10-27 07:50] LABS: CREATININE 0.6 mg/dL (0.55-1.3); PHOSPHOROUS 3.2 mg/dL (2.5-4.9)
[2021-10-27 08:07] LABS: CHOLESTEROL 77 mg/dL (50-200)
[2021-10-27 08:08] LABS: TRIGLYCERIDES 48 mg/dL (0-150)
[2021-10-27 08:09] LABS: HDL CHOLESTEROL 39 mg/dL (40-60); LDL CHOLESTEROL (ONLY SJRH) 35 mg/dL (5-100)
[2021-10-27] MEDS ORDERED: POTASSIUM CHLORIDE ORAL LIQUID 20 MEQ/15 ML PO ONE (08:30)
[2021-10-27] MEDS ORDERED: KCL 10 MEQ IVPB 10 MEQ/100 ML INFUS.BAG IVPB SCH (08:30)
[2021-10-27] MEDS: APIXABAN 5 MG TABLET PO SCH (09:36)
[2021-10-27] MEDS: CARVEDILOL 12.5 MG TABLET (FP) PO SCH (09:37)
[2021-10-27] MEDS ORDERED: NIFEdipine E.R. 90 MG TABLET PO SCH (10:00)
[2021-10-27] MEDS ORDERED: POTASSIUM CHLORIDE TABS 20 MEQ TABLET.ER (FP) PO ONE (10:38)
[2021-10-27] MEDS: INSULIN SLIDING SCALE (NOVOLOG) 1 VIAL SQ SCH (11:59)
[2021-10-27 15:22] VITALS: BP 126/79; PULSE 79; TEMP 98.3
== END 2021-10-27 18:23 | disposition home or self-care (01) ==
LOC: JER 02:33 → JERBED 06:24 → J4W 12:28
PROVIDERS: ADMIT Hospitalist; ATTEND Internal Medicine
PROC: 3E023GC Introduction of Other Therapeutic Substance into Muscle, Percutaneous Approach (ICD-10-PCS; principal; 2021-10-26)
PROC: 3E033GC Introduction of Other Therapeutic Substance into Peripheral Vein, Percutaneous Approach (ICD-10-PCS; 2021-10-26)
DX: R00.2 Palpitations (principal); R00.0 Tachycardia, unspecified; I10 Essential (primary) hypertension; E11.9 Type 2 diabetes mellitus without complications; R10.9 Unspecified abdominal pain; R07.89 Other chest pain; G51.0 Bell's palsy; J01.91 Acute recurrent sinusitis, unspecified; M54.9 Dorsalgia, unspecified; N20.0 Calculus of kidney; N39.0 Urinary tract infection, site not specified; Z29.9 Encounter for prophylactic measures, unspecified; Z88.8 Allergy status to other drugs, medicaments and biological substances; Z91.013 Allergy to seafood
CPT/HCPCS: 36415; 71045-TC-FY; 80048; 80053; 80061; 82962; 83036; 83735; 84100; 84443; 84484; 85025; 85027; 93005; 93010; 93306-TC; 96365; 96372; 96375; 99285-25; C9803-CS; G0378; U0003; U0005

== ENCOUNTER 2021-11-05 15:16 | Emergency (ER) | payer OTHER ==
[2021-11-05 15:27] VITALS: TEMP 98.9; BMI 27.4
[2021-11-05] MEDS ORDERED: ACETAMINOPHEN 500 MG TABLET (FP) PO ONE (16:12)
[2021-11-05] MEDS ORDERED: LIDOCAINE 5% TOPICAL PATCH TP ONE (16:12)
[2021-11-05] MEDS ORDERED: ACETAMINOPHEN 325 MG TABLET (FP) ONE (16:16)
[2021-11-05] MEDS ORDERED: LIDOCAINE 5% TOPICAL PATCH ONE (16:16)
[2021-11-05 17:45] VITALS: BP 145/83; PULSE 86
[2021-11-05] MEDS ORDERED: LIDOCAINE PATCH REMOVAL MC ONE (22:00)
== END 2021-11-05 17:45 | disposition home or self-care (01) ==
LOC: JER 15:16
DX: M25.511 Pain in right shoulder (principal); I48.20 Chronic atrial fibrillation, unspecified; V49.50XA Passenger injured in collision with unspecified motor vehicles in traffic accident, initial encounter
CPT/HCPCS: 70450-TC; 73030-TC-RT-FY; 99284-25

== ENCOUNTER 2021-11-09 18:12 | Observation (INO) | payer OTHER ==
[2021-11-09 18:17] VITALS: TEMP 98; BMI 27.4
[2021-11-09 22:59] LABS: BASO % 0.8 % (0-2.0); EOS % 2.1 % (0-4.5); HEMATOCRIT 32.9 % (32.4-45.2); HEMOGLOBIN 10.9 GM/dL (10.7-15.3); LYMPH % 34.3 % (8-40); MCH 23.6 pg (25.7-33.7); MCHC 33.2 g/dl (32.0-36.0); MEAN CELL VOLUME 71.1 fl (80-96); MEAN PLT VOLUME 7.3 fl (7.5-11.1); MONO % 5.4 % (3.8-10.2); NEUT % 57.4 % (42.8-82.8); PLATELET COUNT 390 10^3/uL (134-434); RBC 4.63 M/mm3 (3.60-5.2); RDW 18.4 % (11.6-15.6); WHITE BLOOD COUNT 8.5 K/mm3 (4.0-10.0)
[2021-11-09 23:33] LABS: CALCIUM 8.7 mg/dL (8.5-10.1)
[2021-11-09 23:34] LABS: ALBUMIN 3.7 g/dl (3.4-5.0); BLOOD UREA NITROGEN 12.5 mg/dL (7-18); MAGNESIUM 1.7 mg/dL (1.8-2.4)
[2021-11-09 23:37] LABS: CREATININE 0.6 mg/dL (0.55-1.3)
[2021-11-09 23:38] LABS: BILIRUBIN,TOTAL 0.3 mg/dL (0.2-1); TOT PROT 8.5 g/dl (6.4-8.2)
[2021-11-10 00:56] VITALS: BP 136/74; PULSE 86
[2021-11-10] MEDS ORDERED: POTASSIUM CHLORIDE TABS 20 MEQ TABLET.ER (FP) PO ONE ×4 (01:43→01:49)
[2021-11-10] MEDS ORDERED: MAGNESIUM OXIDE 400 MG TABLET (FP) PO ONE (02:14)
== END 2021-11-10 03:20 | disposition home or self-care (01) ==
LOC: JER 18:12 → JERBED 11-10 02:06
PROVIDERS: ADMIT Hospitalist; ATTEND Hospitalist
DX: R00.2 Palpitations (principal); E87.6 Hypokalemia; E78.5 Hyperlipidemia, unspecified; I48.91 Unspecified atrial fibrillation; Z79.01 Long term (current) use of anticoagulants; E11.9 Type 2 diabetes mellitus without complications; I10 Essential (primary) hypertension; Z88.8 Allergy status to other drugs, medicaments and biological substances; Z91.013 Allergy to seafood
CPT/HCPCS: 36415; 71046-TC-FY; 80053; 83735; 84484; 85025; 93005; 93010; 99285-25; C9803-CS; G0378; U0003; U0005

== ENCOUNTER 2022-01-15 09:06 | Emergency (ER) | payer OTHER ==
[2022-01-15 09:25] VITALS: BMI 27.4
[2022-01-15] MEDS ORDERED: ACETAMINOPHEN INJECTION 100 ML IVPB ONE (10:46)
[2022-01-15] MEDS: ACETAMINOPHEN 1000 MG/100 ML BAG IVPB ONE ×2 (10:47→11:12)
[2022-01-15] MEDS: PANTOPRAZOLE SODIUM 40 MG VIAL IVPUSH ONE ×2 (10:47→11:12)
[2022-01-15] MEDS ORDERED: PANTOPRAZOLE SODIUM 40 MG/100 ML BAG IVPB ONE (10:47)
[2022-01-15 11:57] VITALS: BP 131/76; PULSE 76; TEMP 97.8
[2022-01-15 12:05] LABS: BASO % 0.6 % (0-2.0); EOS % 1.3 % (0-4.5); HEMATOCRIT 32.7 % (32.4-45.2); HEMOGLOBIN 10.3 GM/dL (10.7-15.3); LYMPH % 35.4 % (8-40); MCH 22.7 pg (25.7-33.7); MCHC 31.6 g/dl (32.0-36.0); MEAN CELL VOLUME 71.9 fl (80-96); MEAN PLT VOLUME 7.7 fl (7.5-11.1); NEUT % 57.7 % (42.8-82.8); PLATELET COUNT 371 10^3/uL (134-434); RBC 4.54 M/mm3 (3.60-5.2); RDW 17.5 % (11.6-15.6); WHITE BLOOD COUNT 5.6 K/mm3 (4.0-10.0)
[2022-01-15 12:12] LABS: INR 1.41 (0.83-1.09); PROTHROMBIN TIME (PATIENT) 16.3 SEC (9.7-13.0)
[2022-01-15 12:26] LABS: ALBUMIN 3.7 g/dl (3.4-5.0); BLOOD UREA NITROGEN 20.3 mg/dL (7-18)
[2022-01-15 12:29] LABS: CREATININE 0.7 mg/dL (0.55-1.3)
[2022-01-15 12:30] LABS: BILIRUBIN,TOTAL 0.6 mg/dL (0.2-1); TOT PROT 8.4 g/dl (6.4-8.2)
[2022-01-15] MEDS ORDERED: POTASSIUM CHLORIDE ORAL LIQUID 20 MEQ/15 ML PO ONE (12:32)
[2022-01-15 12:34] LABS: EPI CELLS 9 /uL (0-25.1); HYALINE CASTS 0 /uL (0-3.1); PH,URINE 6.5 (5.0-8.0); URINE APPEARANCE CLEAR; URINE BACTERIA 310 /uL (0-1359); URINE BILIRUBIN NEGATIVE (NEGATIVE); URINE COLOR YELLOW; URINE GLUCOSE (UA) NEGATIVE (NEGATIVE); URINE KETONE NEGATIVE (NEGATIVE); URINE LEUK ESTERASE TRACE (NEGATIVE); URINE NITRITE NEGATIVE (NEGATIVE); URINE PROTEIN NEGATIVE (NEGATIVE); URINE RBC 8 /uL (0-23.9); URINE UROBILINOGEN 0.2 mg/dL (0.2-1.0); URINE WBC 17 /uL (0-25.8)
[2022-01-15] MEDS ORDERED: POTASSIUM CHLORIDE ORAL LIQUID 20 MEQ/15 ML ONE (12:38)
== END 2022-01-15 13:57 | disposition home or self-care (01) ==
LOC: JER 09:06
DX: R10.32 Left lower quadrant pain (principal)
CPT/HCPCS: 36415; 74176-TC; 80053; 81003; 83690; 85025; 85610; 87086; 99284-25

== ENCOUNTER 2022-02-04 16:53 | Emergency (ER) | payer OTHER ==
[2022-02-04 17:23] VITALS: BP 135/85; PULSE 98; TEMP 98.9; BMI 27.4
[2022-02-04 19:35] LABS: HEMATOCRIT 34.7 % (32.4-45.2); LYMPH % 29.3 % (8-40); MCH 22.9 pg (25.7-33.7); MCHC 31.6 g/dl (32.0-36.0); MEAN CELL VOLUME 72.6 fl (80-96); MEAN PLT VOLUME 8.1 fl (7.5-11.1); MONO % 4.7 % (3.8-10.2); NEUT % 63.8 % (42.8-82.8); PLATELET COUNT 403 10^3/uL (134-434); RBC 4.78 M/mm3 (3.60-5.2); RDW 17.6 % (11.6-15.6); WHITE BLOOD COUNT 7.1 K/mm3 (4.0-10.0)
[2022-02-04 19:36] LABS: BASO % 0.4 % (0-2.0); EOS % 1.8 % (0-4.5)
[2022-02-04 19:52] LABS: CALCIUM 9.1 mg/dL (8.5-10.1)
[2022-02-04 19:53] LABS: BLOOD UREA NITROGEN 18.3 mg/dL (7-18); MAGNESIUM 1.8 mg/dL (1.8-2.4)
[2022-02-04 19:56] LABS: CREATININE 0.7 mg/dL (0.55-1.3)
[2022-02-04 19:57] LABS: BILIRUBIN,TOTAL 0.3 mg/dL (0.2-1)
[2022-02-04] MEDS ORDERED: POTASSIUM CHLORIDE TABS 20 MEQ TABLET.ER (FP) PO ONE ×2 (19:57→21:45)
[2022-02-04 19:58] LABS: TOT PROT 8.8 g/dl (6.4-8.2)
== END 2022-02-04 21:51 | disposition home or self-care (01) ==
LOC: JER 16:53
DX: R00.2 Palpitations (principal)
CPT/HCPCS: 0241U-QW; 36415; 71046-TC-FY; 80053; 83735; 84443; 84484; 85025; 93005; 93010; 99285-25

== ENCOUNTER 2022-05-26 17:21 | Emergency (ER) | payer OTHER ==
[2022-05-26 17:26] VITALS: TEMP 98.4; BMI 27.6
[2022-05-26 19:59] LABS: BASO % 0.8 % (0-2.0); EOS % 1.5 % (0-4.5); HEMATOCRIT 32.4 % (32.4-45.2); HEMOGLOBIN 10.1 GM/dL (10.7-15.3); LYMPH % 28.6 % (8-40); MCH 22.8 pg (25.7-33.7); MCHC 31.3 g/dl (32.0-36.0); MEAN CELL VOLUME 72.9 fl (80-96); MEAN PLT VOLUME 8.2 fl (7.5-11.1); MONO % 5.8 % (3.8-10.2); NEUT % 63.3 % (42.8-82.8); PLATELET COUNT 393 10^3/uL (134-434); RBC 4.44 M/mm3 (3.60-5.2); RDW 17.7 % (11.6-15.6); WHITE BLOOD COUNT 6.9 K/mm3 (4.0-10.0)
[2022-05-26 20:07] LABS: BLOOD UREA NITROGEN 13.5 mg/dL (7-18); CALCIUM 8.9 mg/dL (8.5-10.1); MAGNESIUM 1.6 mg/dL (1.8-2.4)
[2022-05-26 20:08] LABS: ALBUMIN 3.6 g/dl (3.4-5.0)
[2022-05-26 20:10] LABS: CREATININE 0.6 mg/dL (0.55-1.3); PHOSPHOROUS 2.8 mg/dL (2.5-4.9)
[2022-05-26 20:12] LABS: BILIRUBIN,TOTAL 0.3 mg/dL (0.2-1); TOT PROT 7.7 g/dl (6.4-8.2)
[2022-05-26 22:59] VITALS: BP 136/72; PULSE 71; RESP 19
== END 2022-05-26 23:00 | disposition home or self-care (01) ==
LOC: JER 17:21
DX: R00.2 Palpitations (principal)
CPT/HCPCS: 36415; 71045-TC-FY; 80053; 83735; 84100; 84443; 84484; 85025; 93005; 93010; 99285-25

== ENCOUNTER 2022-06-03 13:38 | Emergency (ER) | payer OTHER ==
[2022-06-03 13:57] VITALS: RESP 18; BMI 27.4
[2022-06-03 16:58] LABS: HEMATOCRIT 34.2 % (32.4-45.2); HEMOGLOBIN 10.8 GM/dL (10.7-15.3); MCH 22.8 pg (25.7-33.7); MCHC 31.7 g/dl (32.0-36.0); MEAN CELL VOLUME 71.8 fl (80-96); MEAN PLT VOLUME 7.4 fl (7.5-11.1); PLATELET COUNT 424 10^3/uL (134-434); RBC 4.77 M/mm3 (3.60-5.2); RDW 17.8 % (11.6-15.6); WHITE BLOOD COUNT 7.4 K/mm3 (4.0-10.0)
[2022-06-03 17:27] LABS: CHLORIDE 104 mmol/L (98-107); SODIUM 142 mmol/L (136-145)
[2022-06-03 17:29] LABS: ALBUMIN 3.9 g/dl (3.4-5.0); BLOOD UREA NITROGEN 13.6 mg/dL (7-18); CALCIUM 9.3 mg/dL (8.5-10.1); CO2 30 mmol/L (21-32); MAGNESIUM 1.5 mg/dL (1.8-2.4)
[2022-06-03 17:30] LABS: GLUCOSE,RANDOM 97 mg/dL (74-106)
[2022-06-03 17:32] LABS: CREATININE 0.6 mg/dL (0.55-1.3); PHOSPHOROUS 3.4 mg/dL (2.5-4.9); SGPT/ALT 17 U/L (13-61)
[2022-06-03 17:33] LABS: SGOT/AST 10 U/L (15-37)
[2022-06-03 17:34] LABS: BILIRUBIN,TOTAL 0.4 mg/dL (0.2-1)
[2022-06-03 17:35] LABS: ALK PHOS 109 U/L (45-117)
[2022-06-03 17:44] LABS: ANION GAP 8 MMOL/L (8-16)
[2022-06-03] MEDS ORDERED: MAGNESIUM SULF 50% (8.12 MEQ/2 ML-1 GM VIAL) IVPB ONE (17:47)
[2022-06-03] MEDS ORDERED: POTASSIUM CHLORIDE TABS 20 MEQ TABLET.ER (FP) PO ONE ×2 (17:47→18:09)
[2022-06-03] MEDS ORDERED: MAGNESIUM SULFATE IN WATER 2 GM/50 ML IVPB IVPB ONE (18:12)
[2022-06-03] MEDS ORDERED: MAGNESIUM SULF 50% (8.12 MEQ/2 ML-1 GM VIAL) ONE (18:22)
[2022-06-03 20:20] VITALS: BP 149/96; PULSE 92; TEMP 98.2
== END 2022-06-03 20:21 | disposition home or self-care (01) ==
LOC: JER 13:38
DX: R00.2 Palpitations (principal)
CPT/HCPCS: 36415; 71046-TC-FY; 80053; 83735; 84100; 84443; 84484; 85027; 93005; 93010; 99284-25

== ENCOUNTER 2022-07-28 01:22 | Emergency (ER) | payer OTHER ==
[2022-07-28 01:33] VITALS: BMI 27.4
[2022-07-28 03:25] LABS: BASO % 0.4 % (0-2.0); EOS % 1.4 % (0-4.5); HEMATOCRIT 29.5 % (32.4-45.2); HEMOGLOBIN 9.5 GM/dL (10.7-15.3); LYMPH % 19.5 % (8-40); MCHC 32.2 g/dl (32.0-36.0); MEAN CELL VOLUME 71.6 fl (80-96); MEAN PLT VOLUME 7.5 fl (7.5-11.1); MONO % 4.7 % (3.8-10.2); PLATELET COUNT 347 10^3/uL (134-434); RBC 4.12 M/mm3 (3.60-5.2); RDW 17.7 % (11.6-15.6); WHITE BLOOD COUNT 7.7 K/mm3 (4.0-10.0)
[2022-07-28] MEDS ORDERED: ACETAMINOPHEN 1000 MG/100 ML BAG IVPB ONE (03:43)
[2022-07-28] MEDS ORDERED: MAG HYDROX/AL HYDROX/SIMETH 30 ML UNIT-DOSE CUP PO ONE (03:43)
[2022-07-28] MEDS ORDERED: FAMOTIDINE 20 MG TABLET PO ONE (03:43)
[2022-07-28 03:45] LABS: CALCIUM 8.5 mg/dL (8.5-10.1)
[2022-07-28 03:46] LABS: ALBUMIN 3.3 g/dl (3.4-5.0)
[2022-07-28 03:49] LABS: CREATININE 0.7 mg/dL (0.55-1.3)
[2022-07-28 03:50] LABS: TOT PROT 7.2 g/dl (6.4-8.2)
[2022-07-28 03:51] LABS: BILIRUBIN,TOTAL 0.3 mg/dL (0.2-1)
[2022-07-28 04:12] LABS: LACTIC ACID 2.8 mmol/L (0.4-2.0)
[2022-07-28] MEDS ORDERED: POTASSIUM CHLORIDE ORAL LIQUID 20 MEQ/15 ML PO ONE ×2 (04:20→06:20)
[2022-07-28] MEDS ORDERED: SODIUM CHLORIDE 0.9% 500 ML INFUS.BAG IV ONE (04:21)
[2022-07-28] MEDS ORDERED: FAMOTIDINE 20 MG/50 ML IVPB 20 MG/50 ML MG IVPB ONE ×2 (04:24)
[2022-07-28] MEDS ORDERED: ACETAMINOPHEN INJECTION 100 ML IVPB ONE (04:24)
[2022-07-28 06:06] LABS: EPI CELLS 5 /uL (0-25.1); HYALINE CASTS 0 /uL (0-3.1); PH,URINE 6.5 (5.0-8.0); URINE APPEARANCE CLEAR; URINE BACTERIA 91 /uL (0-1359); URINE BILIRUBIN NEGATIVE (NEGATIVE); URINE COLOR YELLOW; URINE GLUCOSE (UA) TRACE (NEGATIVE); URINE KETONE NEGATIVE (NEGATIVE); URINE LEUK ESTERASE TRACE (NEGATIVE); URINE NITRITE NEGATIVE (NEGATIVE); URINE PROTEIN NEGATIVE (NEGATIVE); URINE RBC 14 /uL (0-23.9); URINE UROBILINOGEN 0.2 mg/dL (0.2-1.0); URINE WBC 12 /uL (0-25.8)
[2022-07-28] MEDS: KCL 10 MEQ IVPB 10 MEQ/100 ML INFUS.BAG IVPB SCH ×2 (06:10→06:22)
[2022-07-28] MEDS ORDERED: KCL 10 MEQ IVPB 10 MEQ/100 ML INFUS.BAG IVPB ONE (06:12)
[2022-07-28] MEDS ORDERED: POTASSIUM CHLORIDE ORAL LIQUID 20 MEQ/15 ML ONE (06:34)
[2022-07-28] MEDS ORDERED: POTASSIUM CHLORIDE TABS 20 MEQ TABLET.ER (FP) PO ONE ×2 (06:37→06:38)
[2022-07-28 08:19] LABS: LACTIC ACID 2.1 mmol/L (0.4-2.0)
[2022-07-28 09:19] VITALS: BP 129/78; PULSE 81; RESP 18; TEMP 98
== END 2022-07-28 09:31 | disposition home or self-care (01) ==
LOC: JER 01:22
PROC: 3E0333Z Introduction of Anti-inflammatory into Peripheral Vein, Percutaneous Approach (ICD-10-PCS; principal; 2022-07-28)
DX: R00.2 Palpitations (principal); R10.84 Generalized abdominal pain
CPT/HCPCS: 36415; 71046-TC-FY; 74177-TC; 80053; 81003; 83605; 83690; 84484; 85025; 87086; 93005; 93010; 99285-25; Q9967

== ENCOUNTER 2022-08-20 23:43 | Emergency (ER) | payer OTHER ==
[2022-08-20 23:51] VITALS: BP 106/67; PULSE 84; RESP 18; TEMP 98.5; BMI 27.4
[2022-08-21 01:12] LABS: BASO % 1.1 % (0-2.0); EOS % 1.9 % (0-4.5); HEMATOCRIT 31.1 % (32.4-45.2); HEMOGLOBIN 9.7 GM/dL (10.7-15.3); LYMPH % 26.9 % (8-40); MCH 22.4 pg (25.7-33.7); MCHC 31.2 g/dl (32.0-36.0); MEAN CELL VOLUME 71.9 fl (80-96); NEUT % 63.1 % (42.8-82.8); PLATELET COUNT 389 10^3/uL (134-434); RBC 4.33 M/mm3 (3.60-5.2); RDW 18.1 % (11.6-15.6); WHITE BLOOD COUNT 7.9 K/mm3 (4.0-10.0)
[2022-08-21 01:20] LABS: INR 1.49 (0.83-1.09); PROTHROMBIN TIME (PATIENT) 17.2 SEC (9.7-13.0)
[2022-08-21 01:22] LABS: ACTIVATED PTT 35.2 SECONDS (25.2-36.5)
[2022-08-21 01:24] LABS: CALCIUM 8.9 mg/dL (8.5-10.1)
[2022-08-21 01:25] LABS: ALBUMIN 3.6 g/dl (3.4-5.0); BLOOD UREA NITROGEN 14.1 mg/dL (7-18)
[2022-08-21 01:28] LABS: CREATININE 0.7 mg/dL (0.55-1.3)
[2022-08-21 01:30] LABS: BILIRUBIN,TOTAL 0.2 mg/dL (0.2-1); TOT PROT 7.9 g/dl (6.4-8.2)
== END 2022-08-21 03:06 | disposition home or self-care (01) ==
LOC: JER 23:43
DX: R00.2 Palpitations (principal)
CPT/HCPCS: 0241U-QW; 36415; 71045-TC-FY; 80053; 83735; 84439; 84443; 84484; 85025; 85610; 85730; 93005; 93010; 99285-25

== ENCOUNTER 2022-09-30 21:00 | Emergency (ER) | payer OTHER ==
[2022-09-30 21:04] VITALS: BMI 27.8
[2022-09-30] MEDS ORDERED: ACETAMINOPHEN 1000 MG/100 ML BAG IVPB ONE (21:32)
[2022-09-30] MEDS ORDERED: SODIUM CHLORIDE 0.9% 500 ML INFUS.BAG IV ONE (21:32)
[2022-09-30] MEDS ORDERED: FAMOTIDINE 20 MG/50 ML IVPB 20 MG/50 ML MG IVPB ONE ×2 (21:32→21:51)
[2022-09-30] MEDS ORDERED: MAG HYDROX/AL HYDROX/SIMETH 30 ML UNIT-DOSE CUP PO ONE (21:32)
[2022-09-30] MEDS ORDERED: ACETAMINOPHEN INJECTION 100 ML IVPB ONE (21:51)
[2022-09-30] MEDS ORDERED: MAG HYDROX/AL HYDROX/SIMETH 30 ML UNIT-DOSE CUP ONE (21:51)
[2022-09-30 22:01] LABS: BASO % 1.4 % (0-2.0); EOS % 2.5 % (0-4.5); HEMATOCRIT 31.9 % (32.4-45.2); HEMOGLOBIN 10.2 GM/dL (10.7-15.3); LYMPH % 30.5 % (8-40); MCH 23.2 pg (25.7-33.7); MEAN CELL VOLUME 72.5 fl (80-96); MEAN PLT VOLUME 7.4 fl (7.5-11.1); MONO % 6.6 % (3.8-10.2); PLATELET COUNT 375 10^3/uL (134-434); RDW 18.5 % (11.6-15.6); WHITE BLOOD COUNT 7.6 K/mm3 (4.0-10.0)
[2022-09-30 22:09] LABS: INR 1.17 (0.83-1.09); PROTHROMBIN TIME (PATIENT) 13.5 SEC (9.7-13.0)
[2022-09-30 22:11] LABS: ACTIVATED PTT 34.1 SECONDS (25.2-36.5)
[2022-09-30 22:22] LABS: CALCIUM 9.1 mg/dL (8.5-10.1)
[2022-09-30 22:23] LABS: ALBUMIN 3.8 g/dl (3.4-5.0); BLOOD UREA NITROGEN 24.2 mg/dL (7-18)
[2022-09-30 22:27] LABS: BILIRUBIN,TOTAL 0.4 mg/dL (0.2-1)
[2022-09-30] MEDS ORDERED: POTASSIUM CHLORIDE TABS 20 MEQ TABLET.ER (FP) PO ONE ×2 (22:31→22:43)
[2022-09-30 22:32] LABS: CREATININE 0.8 mg/dL (0.55-1.3)
[2022-09-30] MEDS ORDERED: POTASSIUM CHLORIDE TABS 10 MEQ TABLET.ER (FP) PO ONE (22:33)
[2022-09-30] MEDS ORDERED: POTASSIUM CHLORIDE TABS 10 MEQ TABLET.ER (FP) ONE (22:43)
[2022-09-30 23:22] LABS: MAGNESIUM 1.7 mg/dL (1.8-2.4)
[2022-09-30 23:32] VITALS: BP 113/66; PULSE 91; RESP 21; TEMP 98.1
== END 2022-10-01 00:32 | disposition home or self-care (01) ==
LOC: JER 21:00
PROC: 3E0333Z Introduction of Anti-inflammatory into Peripheral Vein, Percutaneous Approach (ICD-10-PCS; principal; 2022-09-30)
PROC: 3E033GC Introduction of Other Therapeutic Substance into Peripheral Vein, Percutaneous Approach (ICD-10-PCS; 2022-09-30)
DX: R00.2 Palpitations (principal); K21.9 Gastro-esophageal reflux disease without esophagitis
CPT/HCPCS: 36415; 71045-TC-FY; 80053; 82962; 83605; 83690; 83735; 84484; 85025; 85610; 85730; 93005; 93010; 99285-25

== ENCOUNTER 2022-10-14 22:33 | Emergency (ER) | payer OTHER ==
[2022-10-14 23:02] VITALS: BP 114/71; PULSE 97; RESP 20; TEMP 98.1; BMI 27.4
[2022-10-15 03:28] LABS: BASO % 0.5 % (0-2.0); HEMATOCRIT 31.8 % (32.4-45.2); HEMOGLOBIN 9.9 GM/dL (10.7-15.3); LYMPH % 15.3 % (8-40); MCH 22.4 pg (25.7-33.7); MCHC 31.3 g/dl (32.0-36.0); MEAN CELL VOLUME 71.6 fl (80-96); MEAN PLT VOLUME 7.3 fl (7.5-11.1); MONO % 4.1 % (3.8-10.2); NEUT % 80.1 % (42.8-82.8); PLATELET COUNT 357 10^3/uL (134-434); RBC 4.44 M/mm3 (3.60-5.2); RDW 18.1 % (11.6-15.6)
[2022-10-15 03:48] LABS: ALBUMIN 3.7 g/dl (3.4-5.0); CALCIUM 9.1 mg/dL (8.5-10.1); MAGNESIUM 1.7 mg/dL (1.8-2.4)
[2022-10-15 03:52] LABS: CREATININE 0.7 mg/dL (0.55-1.3)
[2022-10-15 03:53] LABS: BILIRUBIN,TOTAL 0.3 mg/dL (0.2-1); TOT PROT 8.1 g/dl (6.4-8.2)
[2022-10-15 05:47] LABS: ACTIVATED PTT 32.7 SECONDS (25.2-36.5); INR 1.39 (0.83-1.09); PROTHROMBIN TIME (PATIENT) 16.1 SEC (9.7-13.0)
== END 2022-10-15 04:30 | disposition home or self-care (01) ==
LOC: JER 22:33
DX: R00.2 Palpitations (principal)
CPT/HCPCS: 36415; 80053; 82962; 83735; 84443; 84484; 85025; 85610; 85730; 93005; 93010; 99284-25

== ENCOUNTER 2022-10-28 08:42 | Emergency (ER) | payer OTHER ==
[2022-10-28 08:58] VITALS: BP 141/89; PULSE 82; RESP 16; TEMP 97.9; BMI 60.5
== END 2022-10-28 12:45 | disposition home or self-care (01) ==
LOC: JERFT 08:42
DX: M71.22 Synovial cyst of popliteal space [Baker], left knee (principal)
CPT/HCPCS: 73562-TC-LT-FY; 93971-TC; 99284-25

== ENCOUNTER 2022-11-21 04:28 | Day surgery (SDC) | payer OTHER ==
[2022-11-18 15:20] VITALS: BMI 27.4
[2022-11-21] MEDS ORDERED: EPINEPHrine 1:10,000 (P-F SYR) 1 MG/10 ML DISP.SYRIN SQ ONE (11:09)
[2022-11-21 11:38] VITALS: TEMP 97.2
[2022-11-21 12:44] VITALS: BP 116/55; PULSE 81; RESP 14
[2022-11-21] MEDS ORDERED: EPINEPHrine 1:10,000 (P-F SYR) 1 MG/10 ML DISP.SYRIN ONE (14:38)
== END 2022-11-21 12:46 | disposition home or self-care (01) ==
LOC: JASU-ENDO 04:28
PROVIDERS: ATTEND Internal Medicine Gastroenterology
PROC: 0DBL8ZX Excision of Transverse Colon, Via Natural or Artificial Opening Endoscopic, Diagnostic (ICD-10-PCS; 2022-11-21)
PROC: 0DB68ZX Excision of Stomach, Via Natural or Artificial Opening Endoscopic, Diagnostic (ICD-10-PCS; 2022-11-21)
PROC: 0DBK8ZX Excision of Ascending Colon, Via Natural or Artificial Opening Endoscopic, Diagnostic (ICD-10-PCS; principal; 2022-11-21 09:30)
DX: D50.9 Iron deficiency anemia, unspecified (principal); D12.2 Benign neoplasm of ascending colon; D12.3 Benign neoplasm of transverse colon; K29.50 Unspecified chronic gastritis without bleeding; B96.81 Helicobacter pylori [H. pylori] as the cause of diseases classified elsewhere; K64.8 Other hemorrhoids; K31.7 Polyp of stomach and duodenum
CPT/HCPCS: 82962; 88305-TC; 88342-TC

== ENCOUNTER 2022-12-14 07:29 | Emergency (ER) | payer OTHER ==
[2022-12-14 07:44] VITALS: BP 105/67; PULSE 83; RESP 18; TEMP 98.1; BMI 27.4
[2022-12-14] MEDS ORDERED: morphine CARPU-JECT 2 MG/1 ML DISP.SYRIN IVPUSH ONE (09:06)
[2022-12-14 09:27] LABS: BASO % 0.3 % (0-2.0); EOS % 2.3 % (0-4.5); HEMATOCRIT 32.3 % (32.4-45.2); HEMOGLOBIN 10.5 GM/dL (10.7-15.3); LYMPH % 20.9 % (8-40); MCH 23.6 pg (25.7-33.7); MCHC 32.5 g/dl (32.0-36.0); MEAN CELL VOLUME 72.5 fl (80-96); MEAN PLT VOLUME 7.7 fl (7.5-11.1); MONO % 4.4 % (3.8-10.2); NEUT % 72.1 % (42.8-82.8); PLATELET COUNT 356 10^3/uL (134-434); RBC 4.46 M/mm3 (3.60-5.2); RDW 17.7 % (11.6-15.6)
[2022-12-14 09:34] LABS: INR 1.24 (0.83-1.09); PROTHROMBIN TIME (PATIENT) 14.4 SEC (9.7-13.0)
[2022-12-14 09:36] LABS: ACTIVATED PTT 34.7 SECONDS (25.2-36.5)
[2022-12-14] MEDS ORDERED: FAMOTIDINE 20 MG/50 ML IVPB 20 MG/50 ML MG IVPB ONE ×2 (09:40→10:42)
[2022-12-14] MEDS ORDERED: ONDANSETRON 4 MG/2 ML VIAL IVPUSH ONE (09:40)
[2022-12-14] MEDS ORDERED: SODIUM CHLORIDE 0.9% 1000 ML INFUS.BAG IV ONE (09:40)
[2022-12-14 09:53] LABS: EPI CELLS 21 /uL (0-25.1); HYALINE CASTS 0 /uL (0-3.1); PH,URINE 7.5 (5.0-8.0); POTASSIUM 3.4 mmol/L (3.5-5.1); URINE APPEARANCE CLEAR; URINE BACTERIA 320 /uL (0-1359); URINE BILIRUBIN NEGATIVE (NEGATIVE); URINE COLOR YELLOW; URINE GLUCOSE (UA) TRACE (NEGATIVE); URINE KETONE NEGATIVE (NEGATIVE); URINE LEUK ESTERASE 2+ (NEGATIVE); URINE NITRITE NEGATIVE (NEGATIVE); URINE PROTEIN TRACE (NEGATIVE); URINE RBC 47 /uL (0-23.9); URINE WBC 46 /uL (0-25.8)
[2022-12-14 09:55] LABS: CALCIUM 8.6 mg/dL (8.5-10.1)
[2022-12-14 09:56] LABS: ALBUMIN 3.7 g/dl (3.4-5.0); BLOOD UREA NITROGEN 12.8 mg/dL (7-18)
[2022-12-14 09:59] LABS: CREATININE 0.5 mg/dL (0.55-1.3)
[2022-12-14 10:01] LABS: BILIRUBIN,TOTAL 0.4 mg/dL (0.2-1); TOT PROT 7.8 g/dl (6.4-8.2)
[2022-12-14] MEDS ORDERED: ONDANSETRON 4 MG/2 ML VIAL ONE (10:10)
== END 2022-12-14 13:34 | disposition home or self-care (01) ==
LOC: JER 07:29
PROC: 3E033GC Introduction of Other Therapeutic Substance into Peripheral Vein, Percutaneous Approach (ICD-10-PCS; principal; 2022-12-14)
DX: R10.11 Right upper quadrant pain (principal); N39.0 Urinary tract infection, site not specified; R68.83 Chills (without fever); R11.0 Nausea; Z20.822 Contact with and (suspected) exposure to COVID-19
CPT/HCPCS: 0241U-QW; 36415; 74177-TC; 80053; 81003; 83690; 85025; 85610; 85730; 87086; 93005; 93010; 99285-25; Q9967

== ENCOUNTER 2022-12-23 14:08 | Observation (INO) | payer OTHER ==
[2022-12-23 15:45] LABS: BASO % 0.5 % (0-2.0); EOS % 2.9 % (0-4.5); HEMATOCRIT 31.6 % (32.4-45.2); HEMOGLOBIN 10.3 GM/dL (10.7-15.3); MCH 23.5 pg (25.7-33.7); MCHC 32.5 g/dl (32.0-36.0); MEAN CELL VOLUME 72.4 fl (80-96); MEAN PLT VOLUME 8.2 fl (7.5-11.1); MONO % 6.8 % (3.8-10.2); NEUT % 58.8 % (42.8-82.8); PLATELET COUNT 371 10^3/uL (134-434); RBC 4.36 M/mm3 (3.60-5.2); RDW 17.1 % (11.6-15.6); WHITE BLOOD COUNT 6.2 K/mm3 (4.0-10.0)
[2022-12-23 16:18] LABS: POTASSIUM 3.1 mmol/L (3.5-5.1)
[2022-12-23 16:20] LABS: BLOOD UREA NITROGEN 18.5 mg/dL (7-18); MAGNESIUM 1.5 mg/dL (1.8-2.4)
[2022-12-23 16:21] LABS: ALBUMIN 3.7 g/dl (3.4-5.0)
[2022-12-23 16:23] LABS: PHOSPHOROUS 4.1 mg/dL (2.5-4.9)
[2022-12-23 16:24] LABS: CREATININE 0.9 mg/dL (0.55-1.3)
[2022-12-23 16:25] LABS: BILIRUBIN,TOTAL 0.3 mg/dL (0.2-1); TOT PROT 7.8 g/dl (6.4-8.2)
[2022-12-23] MEDS ORDERED: POTASSIUM CHLORIDE ORAL LIQUID 20 MEQ/15 ML PO ONE (17:32)
[2022-12-23] MEDS ORDERED: MAGNESIUM SULF 50% (8.12 MEQ/2 ML-1 GM VIAL) IVPB ONE (17:32)
[2022-12-23 17:46] VITALS: BMI 27.4
[2022-12-23] MEDS ORDERED: POTASSIUM CHLORIDE ORAL LIQUID 20 MEQ/15 ML ONE (17:59)
[2022-12-23] MEDS ORDERED: MAGNESIUM SULFATE IN WATER 2 GM/50 ML IVPB IVPB ONE (17:59)
[2022-12-23] MEDS ORDERED: POTASSIUM CHLORIDE TABS 20 MEQ TABLET.ER (FP) PO ONE (18:01)
[2022-12-23] MEDS ORDERED: PATIENT'S OWN MEDICATION (NON-FORMULARY) (Dorzolamide/Timolol/Pf [Dorzolamide-Timolol 2%-0 OU SCH (22:00)
[2022-12-23] MEDS ORDERED: ATORVASTATIN CA 40 MG TABLET (FP) PO SCH (22:00)
[2022-12-23] MEDS ORDERED: LATANOPROST 0.005% OPHTH SOLN 2.5ML BOTTLE OU SCH (22:00)
[2022-12-23] MEDS: CARVEDILOL 25 MG TABLET (FP) PO SCH (23:04)
[2022-12-23] MEDS: APIXABAN 5 MG TABLET PO SCH (23:04)
[2022-12-23] MEDS: PANTOPRAZOLE 20 MG TABLET PO SCH (23:04)
[2022-12-23] MEDS: TIMOLOL 0.5% OPHTHALMIC SOL 5 ML BOTTLE OU SCH (23:52)
[2022-12-23] MEDS: DORZOLAMIDE 2% HCL OPHTHALMIC SOLUTION 10 ML BOTTLE OU SCH (23:52)
[2022-12-24] MEDS: INSULIN SLIDING SCALE (NOVOLOG) 1 VIAL SQ SCH ×2 (06:07→11:17)
[2022-12-24 07:53] LABS: BASO % 0.5 % (0-2.0); EOS % 3.7 % (0-4.5); HEMOGLOBIN 10.2 GM/dL (10.7-15.3); LYMPH % 37.2 % (8-40); MCH 23.7 pg (25.7-33.7); MCHC 32.9 g/dl (32.0-36.0); MEAN CELL VOLUME 72.1 fl (80-96); MONO % 8.4 % (3.8-10.2); NEUT % 50.2 % (42.8-82.8); PLATELET COUNT 349 10^3/uL (134-434); RDW 17.1 % (11.6-15.6); WHITE BLOOD COUNT 4.2 K/mm3 (4.0-10.0)
[2022-12-24 08:11] LABS: POTASSIUM 3.3 mmol/L (3.5-5.1)
[2022-12-24 08:18] LABS: ALBUMIN 3.4 g/dl (3.4-5.0); BLOOD UREA NITROGEN 13.4 mg/dL (7-18); CALCIUM 8.7 mg/dL (8.5-10.1); CREATININE 0.6 mg/dL (0.55-1.3)
[2022-12-24 08:20] LABS: BILIRUBIN,TOTAL 0.5 mg/dL (0.2-1); TOT PROT 7.4 g/dl (6.4-8.2)
[2022-12-24 08:21] LABS: PHOSPHOROUS 3.4 mg/dL (2.5-4.9)
[2022-12-24 08:25] VITALS: RESP 18
[2022-12-24 08:31] LABS: EPI CELLS 19 /uL (0-25.1); HYALINE CASTS 0 /uL (0-3.1); PH,URINE 6.5 (5.0-8.0); URINE APPEARANCE CLEAR; URINE BACTERIA 188 /uL (0-1359); URINE BILIRUBIN NEGATIVE (NEGATIVE); URINE COLOR YELLOW; URINE GLUCOSE (UA) NEGATIVE (NEGATIVE); URINE KETONE NEGATIVE (NEGATIVE); URINE LEUK ESTERASE 2+ (NEGATIVE); URINE NITRITE NEGATIVE (NEGATIVE); URINE PROTEIN NEGATIVE (NEGATIVE); URINE RBC 32 /uL (0-23.9); URINE UROBILINOGEN 0.2 mg/dL (0.2-1.0); URINE WBC 46 /uL (0-25.8)
[2022-12-24] MEDS: CARVEDILOL 25 MG TABLET (FP) PO SCH (09:50)
[2022-12-24] MEDS: APIXABAN 5 MG TABLET PO SCH (09:50)
[2022-12-24] MEDS: PANTOPRAZOLE 20 MG TABLET PO SCH (09:50)
[2022-12-24] MEDS: TIMOLOL 0.5% OPHTHALMIC SOL 5 ML BOTTLE OU SCH (09:50)
[2022-12-24] MEDS: DORZOLAMIDE 2% HCL OPHTHALMIC SOLUTION 10 ML BOTTLE OU SCH (09:51)
[2022-12-24] MEDS ORDERED: POTASSIUM CHLORIDE TABS 20 MEQ TABLET.ER (FP) PO SCH ×2 (11:00→14:45)
[2022-12-24] MEDS ORDERED: FERROUS SO4 325 MG TABLET (FP) PO SCH (11:15)
[2022-12-24 14:38] VITALS: BP 132/83; PULSE 86; TEMP 98.4
[2022-12-24] MEDS ORDERED: SENNOSIDES 8.6MG TABLET (FP) PO SCH (22:00)
== END 2022-12-24 16:03 | disposition home or self-care (01) ==
LOC: JER 14:08 → JERBED 17:59 → INTOOBSV 17:59 → UNDOADMOB 17:59 → JERBED 20:25 → J4W 22:41
PROVIDERS: ADMIT Internal Medicine; ATTEND Internal Medicine
PROC: 3E033GC Introduction of Other Therapeutic Substance into Peripheral Vein, Percutaneous Approach (ICD-10-PCS; principal; 2022-12-23)
DX: R00.2 Palpitations (principal); R42 Dizziness and giddiness; I48.91 Unspecified atrial fibrillation; E11.9 Type 2 diabetes mellitus without complications; I10 Essential (primary) hypertension; E78.5 Hyperlipidemia, unspecified; S09.90XA Unspecified injury of head, initial encounter; W22.01XA Walked into wall, initial encounter; Q89.3 Situs inversus; Y93.89 Activity, other specified; Y92.002 Bathroom of unspecified non-institutional (private) residence as the place of occurrence of the external cause; Z91.013 Allergy to seafood; Z88.8 Allergy status to other drugs, medicaments and biological substances; Z87.891 Personal history of nicotine dependence
CPT/HCPCS: 0241U-QW; 36415; 70450-TC; 71045-TC-FY; 80053; 80061; 81003; 82728; 82962; 83540; 83550; 83735; 84100; 84439; 84443; 84484; 85025; 85045; 93005; 93010; 96374; 99285-25; G0378

== ENCOUNTER 2023-03-14 21:07 | Observation (INO) | payer OTHER ==
[2023-03-14 21:18] VITALS: BMI 27.1
[2023-03-14 22:20] LABS: BASO % 0.4 % (0-2.0); EOS % 2.3 % (0-4.5); HEMATOCRIT 33.8 % (32.4-45.2); HEMOGLOBIN 11.1 GM/dL (10.7-15.3); LYMPH % 32.4 % (8-40); MCH 23.9 pg (25.7-33.7); MCHC 32.8 g/dl (32.0-36.0); MEAN CELL VOLUME 72.8 fl (80-96); MEAN PLT VOLUME 7.7 fl (7.5-11.1); MONO % 5.7 % (3.8-10.2); NEUT % 59.2 % (42.8-82.8); PLATELET COUNT 410 10^3/uL (134-434); RBC 4.65 M/mm3 (3.60-5.2); RDW 17.4 % (11.6-15.6); WHITE BLOOD COUNT 8.9 K/mm3 (4.0-10.0)
[2023-03-14] MEDS ORDERED: ACETAMINOPHEN 1000 MG/100 ML BAG IVPB ONE (22:38)
[2023-03-14 22:39] LABS: POTASSIUM 3.3 mmol/L (3.5-5.1)
[2023-03-14 22:41] LABS: ALBUMIN 3.9 g/dl (3.4-5.0); CALCIUM 9.3 mg/dL (8.5-10.1)
[2023-03-14 22:42] LABS: BLOOD UREA NITROGEN 17.4 mg/dL (7-18); MAGNESIUM 1.7 mg/dL (1.8-2.4)
[2023-03-14 22:44] LABS: CREATININE 0.8 mg/dL (0.55-1.3)
[2023-03-14] MEDS ORDERED: ACETAMINOPHEN INJECTION 100 ML IVPB ONE (22:45)
[2023-03-14 22:46] LABS: BILIRUBIN,TOTAL 0.2 mg/dL (0.2-1); TOT PROT 8.2 g/dl (6.4-8.2)
[2023-03-14] MEDS ORDERED: MAGNESIUM SULF 50% (8.12 MEQ/2 ML-1 GM VIAL) IVPB ONE (22:49)
[2023-03-14] MEDS ORDERED: POTASSIUM CHLORIDE TABS 20 MEQ TABLET.ER (FP) PO ONE (22:49)
[2023-03-14] MEDS ORDERED: POTASSIUM CHLORIDE ORAL LIQUID 20 MEQ/15 ML PO ONE (22:52)
[2023-03-14 23:02] LABS: INR 1.04 (0.83-1.09); PROTHROMBIN TIME (PATIENT) 12.1 SEC (9.7-13.0)
[2023-03-14] MEDS ORDERED: POTASSIUM CHLORIDE ORAL LIQUID 20 MEQ/15 ML ONE (23:02)
[2023-03-14] MEDS ORDERED: MAGNESIUM 1GM/D5W - 1 GM/100 ML IVPB IVPB ONE (23:02)
[2023-03-14 23:05] LABS: ACTIVATED PTT 28.8 SECONDS (25.2-36.5)
[2023-03-15] MEDS ORDERED: TIMOLOL 0.5% OPHTHALMIC SOL 5 ML BOTTLE OU SCH ×2 (10:00→10:15)
[2023-03-15] MEDS ORDERED: PANTOPRAZOLE 20 MG TABLET PO ONE (10:36)
[2023-03-15] MEDS ORDERED: NIFEdipine E.R. 30 MG TABLET PO ONE (10:36)
[2023-03-15] MEDS ORDERED: APIXABAN 5 MG TABLET ONE (10:36)
[2023-03-15] MEDS ORDERED: FERROUS SO4 325 MG TABLET (FP) ONE (10:37)
[2023-03-15] MEDS ORDERED: NIFEdipine E.R 60 MG TABLET PO ONE (10:37)
[2023-03-15] MEDS ORDERED: CARVEDILOL 25 MG TABLET (FP) ONE (10:37)
[2023-03-15] MEDS: FERROUS SO4 325 MG TABLET (FP) PO SCH (10:48)
[2023-03-15] MEDS: NIFEdipine E.R. 90 MG TABLET PO SCH (10:48)
[2023-03-15] MEDS: PANTOPRAZOLE 20 MG TABLET PO SCH ×2 (10:48→22:20)
[2023-03-15] MEDS: APIXABAN 5 MG TABLET PO SCH ×2 (10:48→22:20)
[2023-03-15] MEDS: CARVEDILOL 25 MG TABLET (FP) PO SCH ×2 (10:48→22:21)
[2023-03-15] MEDS: INSULIN SLIDING SCALE (NOVOLOG) 1 VIAL SQ SCH ×2 (11:40→19:10)
[2023-03-15] MEDS ORDERED: IBUPROFEN 800 MG/8 ML IJ IVPB ONE (15:24)
[2023-03-15] MEDS: DORZOLAMIDE 2% HCL OPHTHALMIC SOLUTION 10 ML BOTTLE OU SCH (15:33)
[2023-03-15] MEDS ORDERED: ATORVASTATIN CA 40 MG TABLET (FP) PO SCH (22:00)
[2023-03-15] MEDS ORDERED: LATANOPROST 0.005% OPHTH SOLN 2.5ML BOTTLE OU SCH (22:00)
[2023-03-15] MEDS ORDERED: SENNOSIDES 8.6MG TABLET (FP) PO SCH (22:00)
[2023-03-16] MEDS: DORZOLAMIDE 2% HCL OPHTHALMIC SOLUTION 10 ML BOTTLE OU SCH ×2 (00:12→09:16)
[2023-03-16] MEDS: INSULIN SLIDING SCALE (NOVOLOG) 1 VIAL SQ SCH ×2 (06:11→11:06)
[2023-03-16 06:58] VITALS: RESP 20
[2023-03-16 09:13] LABS: BASO % 0.3 % (0-2.0); HEMOGLOBIN 11.1 GM/dL (10.7-15.3); LYMPH % 30.6 % (8-40); MCH 23.5 pg (25.7-33.7); MCHC 31.8 g/dl (32.0-36.0); MEAN CELL VOLUME 73.9 fl (80-96); MEAN PLT VOLUME 8.3 fl (7.5-11.1); MONO % 5.3 % (3.8-10.2); NEUT % 61.8 % (42.8-82.8); PLATELET COUNT 408 10^3/uL (134-434); RBC 4.74 M/mm3 (3.60-5.2); RDW 17.7 % (11.6-15.6); WHITE BLOOD COUNT 6.3 K/mm3 (4.0-10.0)
[2023-03-16] MEDS: APIXABAN 5 MG TABLET PO SCH (09:15)
[2023-03-16] MEDS: FERROUS SO4 325 MG TABLET (FP) PO SCH (09:15)
[2023-03-16] MEDS: NIFEdipine E.R. 90 MG TABLET PO SCH (09:16)
[2023-03-16] MEDS: PANTOPRAZOLE 20 MG TABLET PO SCH (09:16)
[2023-03-16] MEDS: CARVEDILOL 25 MG TABLET (FP) PO SCH (09:16)
[2023-03-16 09:19] LABS: POTASSIUM 3.7 mmol/L (3.5-5.1)
[2023-03-16 09:21] LABS: CALCIUM 8.9 mg/dL (8.5-10.1)
[2023-03-16 09:23] LABS: BLOOD UREA NITROGEN 10.2 mg/dL (7-18)
[2023-03-16 09:26] LABS: CREATININE 0.6 mg/dL (0.55-1.3)
[2023-03-16] MEDS ORDERED: TIMOLOL 0.5% OPHTHALMIC SOL 5 ML BOTTLE OU SCH (10:00)
[2023-03-16 10:22] VITALS: BP 132/82; PULSE 81; TEMP 98.8
[2023-03-16] MEDS ORDERED: APIXABAN 5 MG TABLET PO SCH (22:00)
== END 2023-03-16 14:29 | disposition home or self-care (01) ==
LOC: JER 21:07 → INTOOBSV 03-15 09:30 → JERBED 03-15 09:30 → UNDOADMOB 03-15 09:30 → JERBED 03-15 09:47 → J4W 03-15 17:51 → JERBED 03-15 17:51 → J4W 03-15 17:51 → UNDODISOB 03-16 14:29
PROVIDERS: ADMIT Internal Medicine; ATTEND Internal Medicine
PROC: 3E033NZ Introduction of Analgesics, Hypnotics, Sedatives into Peripheral Vein, Percutaneous Approach (ICD-10-PCS; principal; 2023-03-15)
PROC: 3E013VG Introduction of Insulin into Subcutaneous Tissue, Percutaneous Approach (ICD-10-PCS; 2023-03-15)
PROC: 3E033GC Introduction of Other Therapeutic Substance into Peripheral Vein, Percutaneous Approach (ICD-10-PCS; 2023-03-15)
DX: I48.91 Unspecified atrial fibrillation (principal); R00.2 Palpitations; I10 Essential (primary) hypertension; E78.5 Hyperlipidemia, unspecified; Z79.01 Long term (current) use of anticoagulants; E11.9 Type 2 diabetes mellitus without complications; R07.9 Chest pain, unspecified; Q24.0 Dextrocardia; E87.6 Hypokalemia; Z88.8 Allergy status to other drugs, medicaments and biological substances; Z87.891 Personal history of nicotine dependence; Z91.013 Allergy to seafood
CPT/HCPCS: 36415; 71045-TC-FY; 71046-TC-FY; 71275-TC; 80048; 80053; 82150; 82962; 83690; 83735; 84443; 84484; 85025; 85379; 85610; 85730; 93005; 93010; 96372; 96374; 96375; 99285-25; G0378; Q9967

== ENCOUNTER 2023-05-13 14:06 | Day surgery (SDC) | payer OTHER ==
[~2023-05-13 14:06] MED LIST: IRON SUCROSE COMPLEX 200 MG in SODIUM CHLORIDE 100 ML IVPB ONE
[2023-05-13 17:16] VITALS: BP 127/80; PULSE 92; RESP 18; TEMP 98.3
== END 2023-05-13 15:00 | disposition home or self-care (01) ==
LOC: JONCNONCHE 14:06 → J7W 14:06 → JONCNONCHE 15:00
PROVIDERS: ATTEND Internal Medicine Hematology & Oncology
PROC: 3E033GC Introduction of Other Therapeutic Substance into Peripheral Vein, Percutaneous Approach (ICD-10-PCS; principal; 2023-05-13)
DX: D50.9 Iron deficiency anemia, unspecified (principal)

== ENCOUNTER 2023-05-20 14:00 | Day surgery (SDC) | payer OTHER ==
[2023-05-20 15:32] VITALS: BP 123/75; PULSE 90; RESP 18; TEMP 98.4
== END 2023-05-20 15:15 | disposition home or self-care (01) ==
LOC: JONCNONCHE 14:00
PROVIDERS: ATTEND Internal Medicine Hematology & Oncology
PROC: 3E033GC Introduction of Other Therapeutic Substance into Peripheral Vein, Percutaneous Approach (ICD-10-PCS; principal; 2023-05-20)
DX: D50.9 Iron deficiency anemia, unspecified (principal)
CPT/HCPCS: 96365

== ENCOUNTER 2023-06-20 06:18 | Emergency (ER) | payer OTHER ==
[2023-06-20 06:43] VITALS: BMI 27.6
[2023-06-20] MEDS ORDERED: MAG HYDROX/AL HYDROX/SIMETH 30 ML UNIT-DOSE CUP PO ONE (08:11)
[2023-06-20] MEDS ORDERED: ACETAMINOPHEN 1000 MG/100 ML BAG IVPB ONE (08:11)
[2023-06-20] MEDS ORDERED: FAMOTIDINE 20 MG/50 ML IVPB 20 MG/50 ML MG IVPB ONE ×2 (08:11→08:40)
[2023-06-20] MEDS ORDERED: SUCRALFATE 1 GM TABLET (FP) PO ONE (08:12)
[2023-06-20 08:13] VITALS: RESP 18; TEMP 98.6
[2023-06-20] MEDS ORDERED: ACETAMINOPHEN INJECTION 100 ML IVPB ONE (08:39)
[2023-06-20] MEDS ORDERED: SUCRALFATE 1 GM TABLET (FP) ONE (08:39)
[2023-06-20] MEDS ORDERED: MAG HYDROX/AL HYDROX/SIMETH 30 ML UNIT-DOSE CUP ONE (08:40)
[2023-06-20] MEDS ORDERED: APIXABAN 5 MG TABLET PO ONE (09:32)
[2023-06-20] MEDS ORDERED: CARVEDILOL 25 MG TABLET (FP) PO ONE (09:32)
[2023-06-20 09:44] LABS: BASO % 0.7 % (0-2.0); EOS % 2.3 % (0-4.5); HEMATOCRIT 39.3 % (32.4-45.2); HEMOGLOBIN 12.8 GM/dL (10.7-15.3); LYMPH % 26.2 % (8-40); MCH 25.9 pg (25.7-33.7); MCHC 32.7 g/dl (32.0-36.0); MEAN CELL VOLUME 79.1 fl (80-96); MEAN PLT VOLUME 8.3 fl (7.5-11.1); MONO % 4.8 % (3.8-10.2); PLATELET COUNT 343 10^3/uL (134-434); RBC 4.96 M/mm3 (3.60-5.2); WHITE BLOOD COUNT 5.8 K/mm3 (4.0-10.0)
[2023-06-20 09:51] LABS: INR 1.28 (0.83-1.09); POTASSIUM 3.2 mmol/L (3.5-5.1); PROTHROMBIN TIME (PATIENT) 14.8 SEC (9.7-13.0)
[2023-06-20 09:54] LABS: ACTIVATED PTT 35.9 SECONDS (25.2-36.5)
[2023-06-20 09:55] LABS: BLOOD UREA NITROGEN 8.2 mg/dL (7-18); CALCIUM 8.7 mg/dL (8.5-10.1)
[2023-06-20 09:56] LABS: ALBUMIN 4.1 g/dl (3.4-5.0); MAGNESIUM 1.7 mg/dL (1.8-2.4)
[2023-06-20 09:59] LABS: CREATININE 0.5 mg/dL (0.55-1.3); PHOSPHOROUS 2.4 mg/dL (2.5-4.9)
[2023-06-20 10:00] LABS: BILIRUBIN,TOTAL 0.7 mg/dL (0.2-1); TOT PROT 8.6 g/dl (6.4-8.2)
[2023-06-20] MEDS ORDERED: CARVEDILOL 25 MG TABLET (FP) ONE (10:17)
[2023-06-20] MEDS ORDERED: APIXABAN 5 MG TABLET ONE (10:17)
[2023-06-20] MEDS ORDERED: POTASSIUM CHLORIDE TABS 20 MEQ TABLET.ER (FP) PO ONE ×2 (12:43→12:56)
[2023-06-20 13:33] VITALS: BP 122/80; PULSE 88
== END 2023-06-20 13:47 | disposition home or self-care (01) ==
LOC: JER 06:18
DX: R00.2 Palpitations (principal); R42 Dizziness and giddiness; R07.2 Precordial pain; R10.11 Right upper quadrant pain; R10.13 Epigastric pain
CPT/HCPCS: 36415; 71046-TC-FY; 76705-TC; 80053; 83690; 83735; 84100; 84439; 84443; 84484; 85025; 85610; 85730; 93005; 93010; 99285-25

== ENCOUNTER 2023-07-15 14:00 | Day surgery (SDC) | payer OTHER ==
[2023-07-15 16:37] VITALS: RESP 18; TEMP 98
[2023-07-15 16:40] VITALS: BP 119/76; PULSE 91
== END 2023-07-15 15:30 | disposition home or self-care (01) ==
LOC: JONCNONCHE 14:00 → J7W 14:02 → JONCNONCHE 15:30
PROVIDERS: ATTEND Internal Medicine Hematology & Oncology
PROC: 3E033GC Introduction of Other Therapeutic Substance into Peripheral Vein, Percutaneous Approach (ICD-10-PCS; principal; 2023-07-15)
DX: D50.9 Iron deficiency anemia, unspecified (principal)
CPT/HCPCS: 96365

== ENCOUNTER 2023-07-22 13:44 | Day surgery (SDC) | payer OTHER ==
[2023-07-22 15:40] VITALS: RESP 18; TEMP 98
[2023-07-22 15:44] VITALS: BP 113/68; PULSE 76
== END 2023-07-22 15:30 | disposition home or self-care (01) ==
LOC: J7W 13:44 → JONCNONCHE 13:44
PROVIDERS: ATTEND Internal Medicine Hematology & Oncology
PROC: 3E033GC Introduction of Other Therapeutic Substance into Peripheral Vein, Percutaneous Approach (ICD-10-PCS; principal; 2023-07-22)
DX: D50.9 Iron deficiency anemia, unspecified (principal)
CPT/HCPCS: 96365

== ENCOUNTER 2023-07-29 13:30 | Day surgery (SDC) | payer OTHER ==
[~2023-07-29 13:30] MED LIST changes: -IRON SUCROSE COMPLEX 200 MG in SODIUM CHLORIDE 100 ML IVPB ONE; +IRON SUCROSE INJECTION 200 MG in SODIUM CHLORIDE 100 ML IVPB ONE
[2023-07-29 18:20] VITALS: BP 112/69; PULSE 88; RESP 18; TEMP 98.1
== END 2023-07-29 15:20 | disposition home or self-care (01) ==
LOC: JONCNONCHE 13:30 → J7W 13:30 → JONCNONCHE 15:20
PROVIDERS: ATTEND Internal Medicine Hematology & Oncology
PROC: 3E033GC Introduction of Other Therapeutic Substance into Peripheral Vein, Percutaneous Approach (ICD-10-PCS; principal; 2023-07-29)
DX: D50.9 Iron deficiency anemia, unspecified (principal)
CPT/HCPCS: 96365; J1756

== ENCOUNTER 2023-08-05 13:54 | Day surgery (SDC) | payer OTHER ==
[2023-08-05 16:13] VITALS: BP 113/72; PULSE 79; RESP 18; TEMP 97.9
== END 2023-08-05 15:15 | disposition home or self-care (01) ==
LOC: JONCNONCHE 13:54 → J7W 13:55 → JONCNONCHE 15:15
PROVIDERS: ATTEND Internal Medicine Hematology & Oncology
PROC: 3E033GC Introduction of Other Therapeutic Substance into Peripheral Vein, Percutaneous Approach (ICD-10-PCS; principal; 2023-08-05)
DX: D50.9 Iron deficiency anemia, unspecified (principal)
CPT/HCPCS: 96365; J1756

== ENCOUNTER 2023-08-17 17:57 | Emergency (ER) | payer OTHER ==
[2023-08-17 18:05] VITALS: BP 121/75; PULSE 86; RESP 18; TEMP 98.6; BMI 27.4
[2023-08-17] MEDS ORDERED: LORazepam 2 MG TABLET PO ONE (19:22)
[2023-08-17 20:17] LABS: BASO % 0.4 % (0-2.0); HEMATOCRIT 38.2 % (32.4-45.2); HEMOGLOBIN 12.8 GM/dL (10.7-15.3); LYMPH % 28.6 % (8-40); MCHC 33.6 g/dl (32.0-36.0); MEAN CELL VOLUME 80.5 fl (80-96); MEAN PLT VOLUME 7.7 fl (7.5-11.1); MONO % 5.8 % (3.8-10.2); NEUT % 62.2 % (42.8-82.8); PLATELET COUNT 364 10^3/uL (134-434); RBC 4.75 M/mm3 (3.60-5.2); RDW 15.4 % (11.6-15.6); WHITE BLOOD COUNT 7.8 K/mm3 (4.0-10.0)
[2023-08-17 20:26] LABS: INR 1.14 (0.83-1.09); PROTHROMBIN TIME (PATIENT) 13.2 SEC (9.7-13.0)
[2023-08-17 20:28] LABS: ACTIVATED PTT 32.2 SECONDS (25.2-36.5)
[2023-08-17] MEDS ORDERED: POTASSIUM CHLORIDE TABS 20 MEQ TABLET.ER (FP) PO ONE ×2 (20:32→21:23)
[2023-08-17 20:33] LABS: CALCIUM 8.9 mg/dL (8.5-10.1)
[2023-08-17 20:34] LABS: ALBUMIN 3.8 g/dl (3.4-5.0); BLOOD UREA NITROGEN 15.6 mg/dL (7-18); MAGNESIUM 1.4 mg/dL (1.8-2.4)
[2023-08-17] MEDS ORDERED: MAGNESIUM SULF 50% (8.12 MEQ/2 ML-1 GM VIAL) IVPB ONE (20:34)
[2023-08-17 20:37] LABS: CREATININE 0.6 mg/dL (0.55-1.3)
[2023-08-17 20:38] LABS: TOT PROT 8.3 g/dl (6.4-8.2)
[2023-08-17 20:39] LABS: BILIRUBIN,TOTAL 0.4 mg/dL (0.2-1)
[2023-08-17 20:42] LABS: N-TERMINAL BNP 59.9 pg/ml (5-125)
[2023-08-17] MEDS ORDERED: MAGNESIUM SULFATE IN WATER 2 GM/50 ML IVPB IVPB ONE (21:24)
[2023-08-17] MEDS ORDERED: POTASSIUM CHLORIDE ORAL LIQUID 20 MEQ/15 ML PO ONE (22:34)
[2023-08-17] MEDS ORDERED: POTASSIUM CHLORIDE ORAL LIQUID 20 MEQ/15 ML ONE (22:40)
== END 2023-08-17 23:20 | disposition home or self-care (01) ==
LOC: JER 17:57
PROC: 3E033GC Introduction of Other Therapeutic Substance into Peripheral Vein, Percutaneous Approach (ICD-10-PCS; principal; 2023-08-17)
DX: R07.89 Other chest pain (principal); Z20.822 Contact with and (suspected) exposure to COVID-19
CPT/HCPCS: 0241U-QW; 36415; 71046-TC-FY; 80053; 83735; 83880; 84484; 85025; 85610; 85730; 93005; 93010; 99285-25

== ENCOUNTER 2023-12-16 04:42 | Day surgery (SDC) | payer OTHER ==
[2023-12-12 15:54] VITALS: BMI 26.5
[2023-12-16 11:59] VITALS: RESP 18; TEMP 97.8
[2023-12-16 12:38] VITALS: PULSE 90
[2023-12-16 12:49] VITALS: BP 104/62
== END 2023-12-16 12:49 | disposition home or self-care (01) ==
LOC: JASU-ENDO 04:42
PROVIDERS: ATTEND Internal Medicine Gastroenterology
PROC: 0DBN8ZX Excision of Sigmoid Colon, Via Natural or Artificial Opening Endoscopic, Diagnostic (ICD-10-PCS; 2023-12-16)
PROC: 0DBL8ZX Excision of Transverse Colon, Via Natural or Artificial Opening Endoscopic, Diagnostic (ICD-10-PCS; 2023-12-16)
PROC: 0DBK8ZX Excision of Ascending Colon, Via Natural or Artificial Opening Endoscopic, Diagnostic (ICD-10-PCS; principal; 2023-12-16 10:15)
DX: Z12.11 Encounter for screening for malignant neoplasm of colon (principal); D12.3 Benign neoplasm of transverse colon; K63.5 Polyp of colon; K64.8 Other hemorrhoids; Z86.010 Personal history of colon polyps; I10 Essential (primary) hypertension; E11.9 Type 2 diabetes mellitus without complications; Z79.84 Long term (current) use of oral hypoglycemic drugs
CPT/HCPCS: 82962; 88305-TC

== ENCOUNTER 2024-02-19 18:00 | Emergency (ER) | payer OTHER ==
[2024-02-19 18:10] VITALS: BP 112/75; PULSE 97; RESP 18; TEMP 98.6; BMI 26.9
[2024-02-19 21:03] LABS: BASO % 0.4 % (0-2.0); HEMATOCRIT 29.6 % (32.4-45.2); LYMPH % 27.6 % (8-40); MCH 28.2 pg (25.7-33.7); MEAN CELL VOLUME 82.8 fl (80-96); MEAN PLT VOLUME 6.7 fl (7.5-11.1); MONO % 6.5 % (3.8-10.2); NEUT % 60.5 % (42.8-82.8); PLATELET COUNT 480 10^3/uL (134-434); RBC 3.57 M/mm3 (3.60-5.2); RDW 14.9 % (11.6-15.6); WHITE BLOOD COUNT 6.6 K/mm3 (4.0-10.0)
[2024-02-19 21:19] LABS: INR 1.27 (0.83-1.09); PROTHROMBIN TIME (PATIENT) 14.3 SEC (9.7-13.0)
[2024-02-19 21:22] LABS: ACTIVATED PTT 31.8 SECONDS (25.2-36.5)
[2024-02-19 21:30] LABS: CHLORIDE 102 mmol/L (98-107); SODIUM 140 mmol/L (136-145)
[2024-02-19 21:32] LABS: ALBUMIN 3.7 g/dl (3.4-5.0); CALCIUM 9.4 mg/dL (8.5-10.1); CO2 29 mmol/L (21-32)
[2024-02-19 21:33] LABS: BLOOD UREA NITROGEN 19.7 mg/dL (7-18); GLUCOSE,RANDOM 116 mg/dL (74-106)
[2024-02-19 21:34] LABS: ANION GAP 10 mmol/L (4-13); POTASSIUM 2.8 mmol/L (3.5-5.1)
[2024-02-19 21:35] LABS: CREATININE 0.9 mg/dL (0.55-1.3); SGOT/AST 15 U/L (15-37); SGPT/ALT 16 U/L (13-61)
[2024-02-19 21:37] LABS: BILIRUBIN,TOTAL 0.4 mg/dL (0.2-1); TOT PROT 7.7 g/dl (6.4-8.2)
[2024-02-19 21:38] LABS: ALK PHOS 125 U/L (45-117)
[2024-02-19 22:44] LABS: MAGNESIUM 1.7 mg/dL (1.8-2.4)
== END 2024-02-19 23:26 | disposition left against medical advice (07) ==
LOC: JER 18:00
DX: L03.115 Cellulitis of right lower limb (principal)
CPT/HCPCS: 36415; 80053; 83735; 85025; 85610; 85730; 86850; 86900; 86901; 99283-25

== ENCOUNTER 2024-04-10 17:42 | Emergency (ER) | payer OTHER ==
[2024-04-10 17:48] VITALS: TEMP 98.9; BMI 27.4
[2024-04-10 19:05] LABS: BASO % 0.5 % (0-2.0); EOS % 3.2 % (0-4.5); HEMATOCRIT 36.5 % (32.4-45.2); HEMOGLOBIN 12.3 GM/dL (10.7-15.3); MCHC 33.7 g/dl (32.0-36.0); MEAN CELL VOLUME 80.3 fl (80-96); MEAN PLT VOLUME 7.7 fl (7.5-11.1); MONO % 5.4 % (3.8-10.2); NEUT % 64.9 % (42.8-82.8); PLATELET COUNT 349 10^3/uL (134-434); RBC 4.54 M/mm3 (3.60-5.2); RDW 14.6 % (11.6-15.6); WHITE BLOOD COUNT 7.6 K/mm3 (4.0-10.0)
[2024-04-10 19:16] LABS: CHLORIDE 103 mmol/L (98-107); SODIUM 138 mmol/L (136-145)
[2024-04-10 19:20] LABS: ALBUMIN 3.9 g/dl (3.4-5.0); BLOOD UREA NITROGEN 17.7 mg/dL (7-18); CALCIUM 9.3 mg/dL (8.5-10.1); CO2 27 mmol/L (21-32)
[2024-04-10 19:21] LABS: GLUCOSE,RANDOM 191 mg/dL (74-106)
[2024-04-10 19:23] LABS: CREATININE 0.8 mg/dL (0.55-1.3); SGOT/AST 16 U/L (15-37); SGPT/ALT 18 U/L (13-61)
[2024-04-10 19:25] LABS: ALK PHOS 208 U/L (45-117); BILIRUBIN,TOTAL 0.3 mg/dL (0.2-1); TOT PROT 8.2 g/dl (6.4-8.2)
[2024-04-10 19:57] LABS: ANION GAP 8 mmol/L (4-13); POTASSIUM 2.8 mmol/L (3.5-5.1)
[2024-04-10] MEDS ORDERED: POTASSIUM CHLORIDE ORAL LIQUID 20 MEQ/15 ML ONE (20:06)
[2024-04-10] MEDS: POTASSIUM CHLORIDE ORAL LIQUID 20 MEQ/15 ML PO ONE (20:13)
[2024-04-10 20:14] VITALS: BP 135/85; PULSE 96; RESP 19
[2024-04-10] MEDS ORDERED: MAGNESIUM SULFATE IN WATER 2 GM/50 ML IVPB IVPB ONE (20:33)
[2024-04-10] MEDS: MAGNESIUM SULF 50% (8.12 MEQ/2 ML-1 GM VIAL) IVPB ONE (20:38)
[2024-04-10] MEDS ORDERED: POTASSIUM CHLORIDE TABS 20 MEQ TABLET.ER (FP) PO ONE (20:59)
[2024-04-10] MEDS ORDERED: MAG HYDROX/AL HYDROX/SIMETH 30 ML UNIT-DOSE CUP ONE (20:59)
[2024-04-10] MEDS: POTASSIUM CHLORIDE TABS 20 MEQ TABLET.ER (FP) PO ONE (21:04)
[2024-04-10] MEDS: MAG HYDROX/AL HYDROX/SIMETH 30 ML UNIT-DOSE CUP PO ONE (21:05)
== END 2024-04-10 21:40 | disposition home or self-care (01) ==
LOC: JER 17:42
PROC: 3E033GC Introduction of Other Therapeutic Substance into Peripheral Vein, Percutaneous Approach (ICD-10-PCS; principal; 2024-04-10)
DX: R00.2 Palpitations (principal); R05.9 Cough, unspecified; R53.83 Other fatigue; Z20.822 Contact with and (suspected) exposure to COVID-19
CPT/HCPCS: 0241U-QW; 36415; 71045-TC-FY; 80053; 84484; 85025; 93005; 93010; 99285-25

== ENCOUNTER 2024-08-21 13:16 | Emergency (ER) | payer OTHER ==
[2024-08-21 13:26] VITALS: BP 136/82; PULSE 81; RESP 16; TEMP 98.4; BMI 26.6
[2024-08-21 14:44] LABS: EPI CELLS 4 /uL (0-25.1); HYALINE CASTS 244 /uL (0-3.1); URINE APPEARANCE TURBID; URINE BACTERIA 4 /uL (0-1359); URINE BILIRUBIN 1+ (NEGATIVE); URINE COLOR RED; URINE GLUCOSE (UA) NEGATIVE (NEGATIVE); URINE KETONE NEGATIVE (NEGATIVE); URINE LEUK ESTERASE 3+ (NEGATIVE); URINE NITRITE NEGATIVE (NEGATIVE); URINE PROTEIN 2+ (NEGATIVE); URINE UROBILINOGEN 0.2 mg/dL (0.2-1.0); URINE WBC 10859 /uL (0-25.8)
[2024-08-21 15:01] LABS: URINE RBC 25099 /uL (0-23.9); YEAST NOT PRESENT (NEGATIVE)
== END 2024-08-21 15:13 | disposition home or self-care (01) ==
LOC: JER 13:16
DX: N39.0 Urinary tract infection, site not specified (principal); R10.30 Lower abdominal pain, unspecified; R30.0 Dysuria; R35.0 Frequency of micturition; R39.15 Urgency of urination; R31.9 Hematuria, unspecified
CPT/HCPCS: 81003; 87086; 99283-25

== ENCOUNTER 2025-05-31 15:06 | Day surgery (SDC) | payer OTHER ==
[2025-05-31] MEDS: IRON SUCROSE INJECTION 200 MG in SODIUM CHLORIDE 100 ML IVPB ONE (15:37)
[2025-05-31 15:41] VITALS: PULSE 82; RESP 20; TEMP 98.6
[2025-05-31 16:15] VITALS: BP 114/60
== END 2025-05-31 16:40 | disposition home or self-care (01) ==
LOC: JONCNONCHE 15:06
PROVIDERS: ATTEND Internal Medicine Hematology & Oncology
PROC: 3E033GC Introduction of Other Therapeutic Substance into Peripheral Vein, Percutaneous Approach (ICD-10-PCS; principal; 2025-05-31)
DX: D50.9 Iron deficiency anemia, unspecified (principal)
CPT/HCPCS: 96365; J1756